=== PATIENT | female | born 1945 | race Caucasian/White ===

== ENCOUNTER 2020-10-05 12:02 | Outpatient (CLI) | payer MEDICARE, MEDICAID, SELFPAY ==
--- NOTE | 2020-10-05 12:19 | XR_ITS ---
WS: [id number] Exam: XR thoracic spine 2V [id number] Date/Time of Exam: 10/05/2020 12:19 PM Reason For Exam: THORACIC SPINE PAIN No acute fracture or dislocation. Mild spondylosis. Osteopenia. Paraspinal soft tissues are unremarka ble. No significant scoliosis. XR/XR thoracic spine 2V [id number] IMPRESSION: 1. Mild degenerative changes and osteopenia. 2. No fracture or malalignment.
== END 2020-10-05 12:03 | disposition home or self-care (01) ==
PROVIDERS: Visit Provider Chiropractor Orthopedic
DX: M54.6 Pain in thoracic spine (principal); M85.88 Other specified disorders of bone density and structure, other site
CPT/HCPCS: 72070

== ENCOUNTER → 2022-05-21 12:14 | Outpatient (BNVA) | payer MEDICARE, SELFPAY | PROVIDERS: PCP Family Medicine; Visit Provider Family Medicine | DX: M65.4 Radial styloid tenosynovitis [de Quervain] (principal); K21.9 Gastro-esophageal reflux disease without esophagitis; I10 Essential (primary) hypertension; M19.032 Primary osteoarthritis, left wrist; M19.031 Primary osteoarthritis, right wrist | CPT/HCPCS: 73100; 80053; 80061; 82607; 85025 ==

== ENCOUNTER → 2022-05-23 11:28 | Outpatient (BNVA) | payer MEDICARE, MEDICAID, SELFPAY | PROVIDERS: PCP Family Medicine; Visit Provider Family Medicine | DX: I10 Essential (primary) hypertension (principal); K21.9 Gastro-esophageal reflux disease without esophagitis; M65.4 Radial styloid tenosynovitis [de Quervain] | CPT/HCPCS: 81003; 87077; 87086; 87184 ==

== ENCOUNTER 2022-06-16 07:54 | Oncology outpatient (recurring) (ONCR) | payer MEDICARE, MEDICAID, SELFPAY | END 2022-07-09 23:59 | disposition home or self-care (01) | PROVIDERS: PCP Family Medicine; Visit Provider Internal Medicine Hematology & Oncology | DX: C50.912 Malignant neoplasm of unspecified site of left female breast (principal); Z85.118 Personal history of other malignant neoplasm of bronchus and lung; Z79.811 Long term (current) use of aromatase inhibitors; Z90.2 Acquired absence of lung [part of] | CPT/HCPCS: 80053; 85025; 86300; 99204 ==

== ENCOUNTER 2022-06-18 13:26 | Outpatient (CLI) | payer MEDICARE, SELFPAY ==
--- NOTE | 2022-06-18 13:35 | MM_ITS ---
WS: [id number] BILATERAL 3D TOMOSYNTHESIS DIGITAL DIAGNOSTIC MAMMOGRAPHY WITH CAD CLINICAL INFORMATION: Follow up HISTORY: Prior LEFT lumpectomy COMPARISON: None. TECHNIQUE: Bilateral CC, MLO, and ML views. FINDINGS: Scattered fibroglandular densities bilaterally. Vascular calcifications. Postoperative changes lumpec katlyn LEFT breast with parenchymal scarring. A few incidental punctate calcifications. Biopsy clip LEF T breast. No suspicious focal mass, asymmetry, calcifications, or architectural distortion. No evidence of matheus gnancy. MM/[place] [id number] IMPRESSION: BI-RADS: 2-Benign FOLLOW UP: 1 Year Follow-up Recommend return to annual diagnostic mammography.
== END 2022-06-18 13:27 | disposition home or self-care (01) ==
LOC: RAD 13:27
PROVIDERS: PCP Family Medicine; Visit Provider Internal Medicine Hematology & Oncology
DX: Z85.3 Personal history of malignant neoplasm of breast (principal)
CPT/HCPCS: 77062; G0279

== ENCOUNTER 2022-07-10 07:23 | Outpatient (CLI) | payer MEDICARE, SELFPAY ==
--- NOTE | 2022-07-10 07:45 | US_ITS ---
WS: [id number] ULTRASOUND ABDOMEN LIMITED CLINICAL INFORMATION: galltones COMPARISON: None. FINDINGS: Liver Size: Normal. Craniocaudal length: 13.8 cm. Echogenicity: Normal. Surface nodularity: None. Mass (size and location): None. Bile ducts Intrahepatic ducts: Normal. Common bile duct diameter: 0.3 cm. Gallbladder Shadowing cholelithiasis Gallstones: Present Gallbladder sludge: None. Gallbladder wall thickening: None. Pericholecystic fluid: None. Sonographic Hernandez sign: Absent. Pancreas Normal as visualized. Right kidney: Normal. Hydronephrosis: None. Size: 8.6 cm x 3.3 cm x 4.2 cm. Abdominal aorta and IVC Visualized portions are normal. Ascites: None. US/US gall bladder [id number] IMPRESSION: 1. Normal liver. 2. Shadowing cholelithiasis. No gallbladder wall thickening or pericholecystic fluid. 3. Normal common bile duct measuring 2.8 mm. 4. No hydronephrosis in RIGHT kidney.
== END 2022-07-10 07:24 | disposition home or self-care (01) ==
LOC: RAD 07:31
PROVIDERS: PCP Family Medicine; Visit Provider Family Medicine
DX: K80.20 Calculus of gallbladder without cholecystitis without obstruction (principal)
CPT/HCPCS: 76705

== ENCOUNTER 2022-09-04 06:00 | Oncology outpatient (recurring) (ONCR) | payer MEDICARE, SELFPAY | END 2022-09-09 23:59 | disposition home or self-care (01) | LOC: ONCMED 09-18 16:29 | PROVIDERS: PCP Family Medicine; Visit Provider Internal Medicine Hematology & Oncology | DX: C50.912 Malignant neoplasm of unspecified site of left female breast (principal); E87.1 Hypo-osmolality and hyponatremia; Z79.811 Long term (current) use of aromatase inhibitors; R93.89 Abnormal findings on diagnostic imaging of other specified body structures; Z79.899 Other long term (current) drug therapy ==

== ENCOUNTER → 2022-10-07 08:56 | Outpatient (BNVA) | payer MEDICARE, SELFPAY | PROVIDERS: PCP Family Medicine; Visit Provider Surgery | DX: R19.03 Right lower quadrant abdominal swelling, mass and lump (principal); K80.20 Calculus of gallbladder without cholecystitis without obstruction; Z12.11 Encounter for screening for malignant neoplasm of colon | CPT/HCPCS: 99204 ==

== ENCOUNTER 2022-11-06 06:40 | Day surgery (SDC) | payer MEDICARE, SELFPAY ==
[2022-11-05 12:05] VITALS: BMI 38.3
[2022-11-06 07:03] VITALS: BP 152/103; PULSE 79; RESP 16; TEMP 36.2; O2SAT 99
--- NOTE | 2022-11-06 07:22 | ANES.PREANE2 ---
Pre-Anesthetic Assessment Height/Weight: Height 1.5 m Weight 86.183 kg Temp Pulse Resp BP Pulse Ox O2 Del Method 97.2 F L 79 16 152/103 99 11/06/22 07:03 11/06/22 07:03 11/06/22 07:03 11/06/22 07:03 11/06/22 07:03 11/06/22 07:03 Preop Diagnosis: Symptomatic cholelithiasis, abdominal mass Operation Date: 11/06/22 08:00 Proposed Procedures p diagnostic laparoscopy with cholecystectomy 75171 15284,R19.03,(Not Applicable) - Glen Farr DO Familial anesthetic complications: none Was Beta Kita taken within 24 hours: N/A Was Clonidine taken within 24 hours: N/A Last intake: Intake Last Liquid Date 11/05/22 Last Liquid Time 19:30 Last Solid Date 11/05/22 Last Solid Time 18:30 Social No alcohol and No tobacco Exam alert, oriented x 3, clear to auscultation bilaterally and regular rate & rhythm Airway Submandibular: within normal limits Cervical ROM: within normal limits Mallampati: Class I Dentition: false Pulmonary None reported january 2022 wedge resection right lower lobe due to lung cancer. Previous smoker quit at age 52 CV/HEM Hypertension METS < 4 Chronic Renal Insufficiency patient states one kidney is smaller she was told she has bad kidneys . Poor historian. Hepatic None reported GI Gastroesophageal Reflux Disease abdominal pain and mass Metabolic Hyperlipidemia and Morbid Obesity Musc/skel Osteoarthritis/DJD Neuropsych None reported Anesthetic Plan ASA status: 3 Anesthesia: General Medications/Allergies Home Medications Medication Instructions Recorded Confirmed Last Taken Type cholecalciferol (vitamin D3) 50 50 mcg PO DAILY 05/21/22 11/05/22 11/05/22 History mcg (2,000 unit) capsule amlodipine 10 mg tablet 10 mg PO DAILY #90 tabs 06/06/22 11/05/22 11/05/22 Rx atorvastatin 20 mg tablet 20 mg PO DAILY #90 tabs 06/06/22 11/05/22 11/05/22 Rx anastrozole 1 mg tablet 1 mg PO DAILY #90 tabs 06/16/22 11/05/22 11/05/22 Rx cyclobenzaprine 5 mg tablet 5 mg PO BID PRN muscle relaxer 06/16/22 11/05/22 Unknown History pantoprazole 40 mg tablet,delayed 40 mg PO DAILY #90 tabs 06/23/22 11/05/22 11/05/22 Rx release sertraline 50 mg tablet 50 mg PO DAILY #90 tabs 06/23/22 11/05/22 11/05/22 Rx sucralfate 100 mg/mL oral 5 ml PO QID #1,000 mL 08/28/22 11/05/22 11/05/22 Rx suspension lisinopril 40 mg tablet 40 mg PO DAILY #90 tabs 10/07/22 11/05/22 11/05/22 Rx tamsulosin 0.4 mg capsule 0.4 mg PO DAILY #90 caps 10/07/22 11/05/22 11/05/22 Rx docusate sodium 100 mg capsule 100 mg PO BID #14 caps 11/06/22 Unknown Rx (DOK) hydrocodone 5 mg-acetaminophen 325 1 tab PO Q6H PRN pain #20 tabs 11/06/22 Unknown Rx mg tablet Allergies Allergy/AdvReac Type Severity Reaction Status Date / Time No Known Allergies Allergy Verified 11/06/22 07:01 [facility] Anesthesia Medical History Gallstone GERD (gastroesophageal reflux disease) History of breast cancer History of lung cancer History of nonmelanoma skin cancer Hypercholesteremia Hypertension Osteoarthritis Tendonitis bilateral wrists Surgical History History of bilateral tubal ligation History of esophagogastroduodenoscopy (EGD) 10+ yrs History of lumpectomy of left breast History of lung surgery cancer removal Hx of colonoscopy 10+ Family History Denies family history of Diabetes CAD (coronary artery disease) Clotting disorder Dementia Hyperlipidemia Chronic kidney disease (CKD) Anesthesia complication Bleeding disorder Lung disease Cancer Hypertension Stroke Social History Smoking and tobacco status: former smoker (smoked x 20+ years) Smoking risk assessment/counseling performed?: No Alcohol intake: current Alcohol intake frequency: holidays/special occasions only Desire information about alcohol rehabilitation?: No Counseling given: No Desire information about substance/drug rehabilitation?: No Counseling given: No Adopted: No Caregiver/support person: No Lives independently: Yes Household members: children Marital status: service: No Current occupational status: retired and disabled Current occupational exposures/hazards: No Pets and animals: No Current gender identity: Female Special nitish needs: No Agree to transfusion: Yes Data Anesthesia Cardiac Studies: No Data to Display
[2022-11-06] MEDS: sodium chloride 0.9% 1,000 ML 30 ML IV (07:23)
--- NOTE | 2022-11-06 07:45 | ECG_ITS ---
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 Measurements Intervals Conesus Rate: 64 P: -24 HI: 159 QRS: -1 QRSD: 87 T: 29 QT: 381 QTc: 396 Interpretive Statements SINUS RHYTHM LOW QRS VOLTAGE IN PRECORDIAL LEADS [QRS DEFLECTION < 1.0 mV IN CHEST LEADS] PATTERN CONSISTENT WITH PULMONARY DISEASE No previous ECG available for comparison Electronically Signed On 11-06-2022 18:47:17 CDT by Ze Mcguire M.D. [id number]
--- NOTE | 2022-11-06 08:00 | W.PM.OPSUD ---
Surgery/Procedure H&P Update DATE OF PROCEDURE: November 06, 2022 DATE H&P PERFORMED: 10/07/22 H&P UPDATE INFORMATION: I have reviewed H&P completed within last 30 days, I have examined patient prior to procedure and No changes to prior documentation PREOP DIAGNOSIS: Symptomatic cholelithiasis, abdominal mass PLANNED PROCEDURE: Operation Date: 11/06/22 08:00 Proposed Procedures p diagnostic laparoscopy with cholecystectomy 01290 92200,R19.03,(Not Applicable) - Glen Farr DO
[2022-11-06] MEDS: ceFAZolin 2,000 MG in sodium chloride 0.9% (plus) 50 ML 100 MG IV (08:01)
[2022-11-06] MEDS: lidocaine-epi 2% 20 mL INJ INJECTION (08:22)
--- NOTE | 2022-11-06 09:05 | P.OP_ITS ---
Operative Report Date of procedure: November 06, 2022 Pre-op diagnosis: Preop Diagnosis Symptomatic cholelithiasis, abdominal mass Post-op diagnosis: same Procedure done: Diagnostic laparoscopy, laparoscopic cholecystectomy Implants: None Specimens removed/disposition: Gallbladder Surgeon: Dr. Glen Ohara DO Anesthesia: General Estimated blood loss (mL): 5 Complications: None apparent Brief History: This is a very pleasant 77-year-old female who was diagnosed with symptomatic cholelithiasis. She was also found to have a calcified mass near her cecum on outside imaging. Diagnostic laparoscopy and laparoscopic cholecystectomy were indicated. The risk and benefits were explained and documented. Procedure: Patient was wheeled into the operative room and placed on the OR table in a supine position. Abdomen was inspected prepped and draped in usual sterile fashion. Time-out was performed and all present were in agreement. A 15 blade scalp was used to make a 5 mm incision in the left upper quadrant and intra- abdominal insufflation was achieved using a Veress needle. A 5 mm trocar was placed into the left lower quadrant. The right lower quadrant was explored. The cecum was turned over. There was a right ovarian cyst noted and a calcified and aneurysmal aortic bifurcation. The right internal iliac artery was very large and calcified as well. No mass was found. After localizing the tissue incisions were made and a 5 millimeter trocar was placed into the umbilicus as well as 2 in the right upper quadrant. A 12 millimeter trocar was placed in the epigastrium. There was significant omental adhesions over the gallbladder which were removed with electrocautery. Gallbladder was grasped and elevated. The triangle of Calot was carefully dissected using blunt dissection and electrocautery until the triangle of Calot clearly identified. The cystic duct was clipped proximally and double clipped distally. The duct was then ligated pr oximally. The cystic artery was doubly clipped and ligated. The gallbladder was then removed from the liver bed using electrocautery. The gallbladder was removed from the abdomen using an Endo-Catch bag through the epigastric incision. The liver bed was inspected and no bleeding was seen. The abdomen was irrigated and suctioned. All ports removed. Skin was washed and dried. Incisions were closed with 3-0 and 4-O Vicryl in a subcuticular interrupted fashion. Skin glue was applied. Patient tolerated the procedure well.
[2022-11-06 09:30] VITALS: BP 119/53; PULSE 71; RESP 16; TEMP 36.3; O2SAT 99
[2022-11-06 09:35] VITALS: BP 122/50; PULSE 70; RESP 16; O2SAT 99
[2022-11-06 09:40] VITALS: BP 115/47; PULSE 70; RESP 16; O2SAT 94
[2022-11-06 09:45] VITALS: BP 120/53; PULSE 72; RESP 16; TEMP 36.6; O2SAT 94
[2022-11-06 10:00] VITALS: BP 130/61; PULSE 64; RESP 17; O2SAT 98
[2022-11-06] MEDS: HYDROcodone-acetaminophen 5-325 mg Tablet 1 TAB PO (10:14)
--- NOTE | 2022-11-06 15:59 | ANE.PACU2 ---
Inpatient post-anesthesia follow up: Airway intact: Yes Vital signs: Temperature 97.8 F Pulse Rate 64 Respiratory Rate 17 Blood Pressure 130/61 Pulse Oximetry 98 Oxygen Delivery Me thod Room Air Oxygen Flow Rate 3 Fraction of Inspir ed Oxygen Hydration adequate: Yes Nausea and vomiting: No Pain level: 3 Mental status: Baseline
== END 2022-11-06 10:45 | disposition home or self-care (01) ==
PROVIDERS: PCP Family Medicine; Visit Provider Surgery
PROC: 0FT44ZZ Resection of Gallbladder, Percutaneous Endoscopic Approach (ICD-10-PCS; CPT 47562; principal; 2022-11-06 08:00)
DX: K80.10 Calculus of gallbladder with chronic cholecystitis without obstruction (principal); R19.03 Right lower quadrant abdominal swelling, mass and lump; Z87.891 Personal history of nicotine dependence; Z90.2 Acquired absence of lung [part of]; Z85.118 Personal history of other malignant neoplasm of bronchus and lung; I12.9 Hypertensive chronic kidney disease with stage 1 through stage 4 chronic kidney disease, or unspecified chronic kidney disease; N18.9 Chronic kidney disease, unspecified; K21.9 Gastro-esophageal reflux disease without esophagitis; E78.5 Hyperlipidemia, unspecified; E66.01 Morbid (severe) obesity due to excess calories; Z68.38 Body mass index [BMI] 38.0-38.9, adult; M19.90 Unspecified osteoarthritis, unspecified site
CPT/HCPCS: 47562; 88304; 93005; J0690; J1100; J2370; J2405; J2704; J2710; J3010; J3490; J7030

== ENCOUNTER → 2022-11-18 10:22 | Outpatient (BNVA) | payer MEDICARE, SELFPAY | PROVIDERS: PCP Family Medicine; Visit Provider Surgery | DX: Z98.890 Other specified postprocedural states (principal); N83.201 Unspecified ovarian cyst, right side; Z90.49 Acquired absence of other specified parts of digestive tract; R19.03 Right lower quadrant abdominal swelling, mass and lump | CPT/HCPCS: 99024 ==

== ENCOUNTER 2022-12-03 05:44 | Day surgery (SDC) | payer MEDICARE, SELFPAY ==
[2022-12-01 08:56] VITALS: BMI 38.0
[2022-12-03] MEDS: sodium chloride 0.9% 1,000 ML 30 ML IV (06:12)
[2022-12-03 06:14] VITALS: BP 171/77; PULSE 70; RESP 18; TEMP 36.5; O2SAT 97
--- NOTE | 2022-12-03 06:51 | W.PM.OPSUD ---
Surgery/Procedure H&P Update DATE OF PROCEDURE: December 03, 2022 DATE H&P PERFORMED: 11/18/22 H&P UPDATE INFORMATION: I have reviewed H&P completed within last 30 days, I have examined patient prior to procedure and No changes to prior documentation PLANNED PROCEDURE: Operation Date: 12/03/22 07:00 Proposed Procedures p : [id number] Colon Z12.11(Not Applicable) - Glen Farr, DO
--- NOTE | 2022-12-03 06:56 | P.ANESASSM_ITS ---
Pre-Anesthetic Assessment Height/Weight: Height 1.52 m Weight 88.451 kg Temp Pulse Resp BP Pulse Ox O2 Del Method 97.7 F 70 18 171/77 97 Room Air 12/03/22 06:14 12/03/22 06:14 12/03/22 06:14 12/03/22 06:14 12/03/22 06:14 12/03/22 06:14 Preop Diagnosis: screening Operation Date: 12/03/22 07:00 Proposed Procedures p : [id number] Colon Z12.11(Not Applicable) - Glen Farr DO Familial anesthetic complications: none Was Beta Kita taken within 24 hours: N/A Was Clonidine taken within 24 hours: N/A Last intake: Intake Last Liquid Date 12/02/22 Last Liquid Time 19:30 Last Solid Date 12/01/22 Social No alcohol and No tobacco Exam alert and oriented x 3 Airway Submandibular: within normal limits Cervical ROM: within normal limits Mallampati: Class II Dentition: false (uppers) History/ROS No significant history except as noted Pulmonary None reported CV/HEM Hypertension reports one is smaller than the other, was told she has bad kidneys Hepatic None reported GI Gastroesophageal Reflux Disease Metabolic Morbid Ob[place] [facility] None reported Neuropsych None reported Anesthetic Plan ASA status: 2 Anesthesia: Anesthesia Evaluation and MAC Risk of > 500 ml blood loss (7ml/kg in children): No Medications/Allergies Home Medications Medication Instructions Recorded Confirmed Last Taken Type cholecalciferol (vitamin D3) 50 50 mcg PO DAILY 05/21/22 12/01/22 12/02/22 History mcg (2,000 unit) capsule amlodipine 10 mg tablet 10 mg PO DAILY #90 tabs 06/06/22 12/01/22 12/02/22 Rx anastrozole 1 mg tablet 1 mg PO DAILY #90 tabs 06/16/22 12/01/22 12/02/22 Rx pantoprazole 40 mg tablet,delayed 40 mg PO DAILY #90 tabs 06/23/22 12/01/22 12/02/22 Rx release sertraline 50 mg tablet 50 mg PO DAILY #90 tabs 06/23/22 12/01/22 12/02/22 Rx lisinopril 40 mg tablet 40 mg PO DAILY #90 tabs 10/07/22 12/01/22 12/02/22 Rx tamsulosin 0.4 mg capsule 0.4 mg PO DAILY #90 caps 10/07/22 12/01/22 12/02/22 Rx atorvastatin 20 mg tablet 20 mg PO DAILY #90 tabs 11/27/22 12/01/22 12/02/22 Rx Allergies Allergy/AdvReac Type Severity Reaction Status Date / Time No Known Allergies Allergy Verified 12/03/22 06:13 Current Medications Generic Name Dose Route Start Last Admin Trade Name Freq PRN Reason Stop Dose Admin Sodium Chloride 1,000 mls @ 30 mls/hr 12/03/22 06:00 12/03/22 06:12 Sodium Chloride 0.9% IV 12/04/22 05:59 30 mls/hr .Q24H KAYLEEN Administration PFSH Anesthesia Medical History (Updated 11/25/22 @ 09:46 by Jose Guadalupe Earl) Gallstone GERD (gastroesophageal reflux disease) History of breast cancer History of lung cancer History of nonmelanoma skin cancer Hypercholesteremia Hypertension Osteoarthritis Tendonitis bilateral wrists Surgical History History of bilateral tubal ligation History of esophagogastroduodenoscopy (EGD) 10+ yrs History of laparoscopic cholecystectomy History of lumpectomy of left breast History of lung surgery cancer removal Hx of colonoscopy 10+ Family History (Updated 11/25/22 @ 09:47 by Jose Guadalupe Earl) Family/Other Breast cancer Aunt/Maternal Grandmother Breast cancer Maternal Father Heart disease Denies family history of Colon cancer Ovarian cancer Diabetes Hypertension Uterine cancer Thyroid disease Stroke Social History Substance/Drug Use: never Do you think of yourself as: Straight/Heterosexual Data Anesthesia Cardiac Studies: No Data to Display
[2022-12-03 07:34] VITALS: BP 118/50; PULSE 72; RESP 16; TEMP 36.3; O2SAT 100
--- NOTE | 2022-12-03 07:34 | ANE.PACU2 ---
Inpatient post-anesthesia follow up: Airway intact: Yes Vital signs: Temperature 97.7 F Pulse Rate 70 Respiratory Rate 18 Blood Pressure 171/77 Pulse Oximetry 97 Oxygen Delivery Me thod Room Air Oxygen Flow Rate Fraction of Inspir ed Oxygen Hydration adequate: Yes Nausea and vomiting: No Pain level: 1 Mental status: Baseline
[2022-12-03 07:48] VITALS: BP 127/51; PULSE 81; RESP 18; O2SAT 98
== END 2022-12-03 08:21 | disposition home or self-care (01) ==
PROVIDERS: PCP Family Medicine; Visit Provider Surgery
PROC: 0DJD8ZZ Inspection of Lower Intestinal Tract, Via Natural or Artificial Opening Endoscopic (ICD-10-PCS; CPT 45378; principal; 2022-12-03 07:00)
DX: Z12.11 Encounter for screening for malignant neoplasm of colon (principal); D12.2 Benign neoplasm of ascending colon; K63.89 Other specified diseases of intestine; K21.9 Gastro-esophageal reflux disease without esophagitis; I10 Essential (primary) hypertension; E78.00 Pure hypercholesterolemia, unspecified; E66.01 Morbid (severe) obesity due to excess calories; Z68.38 Body mass index [BMI] 38.0-38.9, adult; Z79.899 Other long term (current) drug therapy
CPT/HCPCS: 45380; 45381; 88305; J2704; J3490; J7030

== ENCOUNTER 2022-12-05 08:57 | Outpatient (CLI) | payer MEDICARE, SELFPAY ==
[2022-12-05 09:41] LABS: Blood Urea Nitrogen 12 mg/dL (8-23)
[2022-12-05] MEDS: iohexol 350 mg/mL 500 mL Btl (per mL) IV (09:45)
--- NOTE | 2022-12-05 09:50 | XR_ITS ---
WS: [id number] Exam: XR chest 2V* [id number] Date/Time of Exam: 12/05/2022 9:50 AM Reason For Exam: colon mass No priors. The lungs are fully expanded and clear. Normal cardiomediastinal silhouette. No pleural effusions. Prater rgical clips along the left axilla. Mild scoliosis of the lower T-spine. XR/XR chest 2V* [id number] IMPRESSION: 1. No acute cardiopulmonary finding.
--- NOTE | 2022-12-05 10:30 | CT_ITS ---
WS: [id number] CT ABDOMEN PELVIS TECHNIQUE: Contrast-enhanced CT of the abdomen and pelvis with coronal and sagittal reformatted image s. CLINICAL INFORMATION: colon mass COMPARISON: None. DLP: 608.[address] scans at [facility] use at least one of these dose optimization techniques: automated e xposure control; mA and/or kV adjustment per patient size (includes targeted exams where dose is matc hed to clinical indication); or iterative reconstruction. FINDINGS: Reported RIGHT colon mass on recent colonoscopy. Normal sigmoid colon. Normal descending colon and transverse colon. Tortuous RIGHT colon and hepatic flexure. Normal appendix in the RIGHT lower quadrant. Intraluminal mass seen on the recent colonoscop y not well visualized on this examination. Normal visualized small bowel. Diffuse gastric wall thicke kelly can be seen with gastritis and proximal duodenitis. Subsegmental atelectasis in the lung bases. Grade 1 anterolisthesis L4 on L5. Diffuse fatty infiltration liver. Enlarged RIGHT hepatic lobe. Norm al portal vein and splenic vein. Cholecystectomy clips. Adrenal glands are normal. Mild fatty atrophy of the pancreas. Normal spleen. Splenic artery calcification. Densely calcified a bdominal aorta. Moderate stenosis at the celiac origin with dense calcification. SMA is patent. Dense vascular calcification of the renal artery origins. No abdominal or pelvic lymphadenopathy. No inguinal lymphadenopathy. CT/CT abdomen pelvis w con* [id number] IMPRESSION: 1. No evidence of metastatic disease in the abdomen or pelvis. 2. Mass seen on recent colonoscopy not well visualized on this examination. 3. No evidence of small or large bowel obstruction. 4. Diffuse fatty infiltration liver. 5. Cholecystectomy clips. 6. Diffuse gastric wall thickening with mucosal enhancement extending to the p roximal duodenum likely due to gastritis and duodenitis. 7. Dense vascular calcification. 8. No other suspicious findings.
== END 2022-12-05 08:58 | disposition home or self-care (01) ==
LOC: RAD 09:02
PROVIDERS: Radiology Diagnostic Radiology; PCP Family Medicine; Visit Provider Surgery
DX: K63.89 Other specified diseases of intestine (principal); K76.0 Fatty (change of) liver, not elsewhere classified
CPT/HCPCS: 71046; 74177; 82565; 84520; Q9967

== ENCOUNTER 2022-12-08 10:22 | Inpatient (IN) | payer MEDICARE, SELFPAY ==
[2022-12-05 10:35] VITALS: BMI 37.0
[2022-12-08] VITALS (20 sets, daily range): BP systolic 87–169; BP diastolic 46–88; PULSE 63–105; RESP 16–18; TEMP 35.8–36.6; O2SAT 91–100; BMI 37.0
[2022-12-08] MEDS: sodium chloride 0.9% 1,000 ML 30 ML IV (06:22)
[2022-12-08 06:39] LABS: Basophils % 0.8 %; Eosinophils # 0.2 10^3/uL (0.0-0.8); Eosinophils % 3.4 %; Hematocrit 33.8 % (37.0-47.0); Hemoglobin 10.8 g/dL (11.5-15.3); Lymphocytes # 1.3 10^3/uL (0.8-4.8); Lymphocytes % 24.9 %; Mean Corpuscular Hemoglobin 28.7 pg (28.0-34.0); Mean Corpuscular Volume 89.9 fl (81-99); Mean Platelet Volume 10.5 fL (7.4-10.4); Monocytes # 0.6 10^3/uL (0.2-0.9); Monocytes % 10.9 %; Neutrophils # 3.02 10^3/uL (1.8-7.7); Neutrophils % 59.6 %; Nucleated Red Blood Cells % 0 %; Platelet Count 233 10^3/cmm (130-400); Red Blood Count 3.76 10^6/uL (4.1-5.3); White Blood Count 5.1 10^3/uL (4.0-10.0)
--- NOTE | 2022-12-08 06:53 | ANES.PREANE2 ---
Pre-Anesthetic Assessment Height/Weight: Height 1.52 m Weight 86.183 kg Temp Pulse Resp BP Pulse Ox O2 Del Method 97.9 F 105 H 17 169/88 95 Room Air 12/08/22 06:09 12/08/22 06:09 12/08/22 06:09 12/08/22 06:09 12/08/22 06:09 12/08/22 06:13 Preop Diagnosis: Ascending colon mass Operation Date: 12/08/22 07:00 Proposed Procedures p Laparoscopic Right Hemicolectomy(Right) - Glen Farr DO Familial anesthetic complications: None Was Beta Kita taken within 24 hours: N/A Was Clonidine taken within 24 hours: N/A Last intake: Intake Last Liquid Date 12/07/22 Last Liquid Time 19:00 Last Solid Date 12/06/22 Last Solid Time 09:00 Social No alcohol and No tobacco former smoker Exam alert, oriented x 3, clear to auscultation bilaterally and regular rate & rhythm Airway Mallampati: Class I Dentition: false Pulmonary hx wedge resection 2021 CV/HEM Hypertension Chronic Renal Insufficiency GI Gastroesophageal Reflux Disease Metabolic Morbid Obesity Anesthetic Plan ASA status: 3 Anesthesia: General Risk of > 500 ml blood loss (7ml/kg in children): No Medications/Allergies Home Medications Medication Instructions Recorded Confirmed Last Taken Type cholecalciferol (vitamin D3) 50 50 mcg PO DAILY 05/21/22 12/08/22 12/07/22 History mcg (2,000 unit) capsule amlodipine 10 mg tablet 10 mg PO DAILY #90 tabs 06/06/22 12/05/22 12/07/22 Rx anastrozole 1 mg tablet 1 mg PO DAILY #90 tabs 06/16/22 12/05/22 12/07/22 Rx pantoprazole 40 mg tablet,delayed 40 mg PO DAILY #90 tabs 06/23/22 12/05/22 12/07/22 Rx release sertraline 50 mg tablet 50 mg PO DAILY #90 tabs 06/23/22 12/05/22 12/07/22 Rx lisinopril 40 mg tablet 40 mg PO DAILY #90 tabs 10/07/22 12/05/22 12/07/22 Rx tamsulosin 0.4 mg capsule 0.4 mg PO DAILY #90 caps 02/28/23 04/28/23 04/30/23 Rx atorvastatin 20 mg tablet 20 mg PO DAILY #90 tabs 11/27/22 12/05/22 12/07/22 Rx Allergies Allergy/AdvReac Type Severity Reaction Status Date / Time No Known Allergies Allergy Verified 12/08/22 06:03 Current Medications Generic Name Dose Route Start Last Admin Trade Name Andrea PRN Reason Stop Dose Admin Sodium Chloride 1,000 mls @ 30 mls/hr 12/08/22 06:00 12/08/22 06:22 Sodium Chloride 0.9% IV 12/09/22 05:59 30 mls/hr .Q24H KAYLEEN Administration PFSH Anesthesia Medical History (Updated 11/25/22 @ 09:46 by Jose Guadalupe Earl) Gallstone GERD (gastroesophageal reflux disease) History of breast cancer History of lung cancer History of nonmelanoma skin cancer Hypercholesteremia Hypertension Osteoarthritis Tendonitis bilateral wrists Surgical History History of bilateral tubal ligation History of esophagogastroduodenoscopy (EGD) 10+ yrs History of laparoscopic cholecystectomy History of lumpectomy of left breast History of lung surgery cancer removal Hx of colonoscopy 10+ Family History (Updated 11/25/22 @ 09:47 by Jose Guadalupe Earl) Family/Other Breast cancer Aunt/Maternal Grandmother Breast cancer Maternal Father Heart disease Denies family history of Colon cancer Ovarian cancer Diabetes Hypertension Uterine cancer Thyroid disease Stroke Social History Substance/Drug Use: never Do you think of yourself as: Straight/Heterosexual Data Anesthesia 12/08/22 06:26 12/08/22 06:26 Short CBC 12/08/22 Range/Units 06:26 WBC 5.1 (4.0-10.0) 10^3/uL Hgb 10.8 L (11.5-15.3) g/dL Hct 33.8 L (37.0-47.0) % MCV 89.9 (81-99) fl Plt Count 233 (130-400) 10^3/cmm Neut % (Auto) 59.6 % Neut # (Auto) 3.02 (1.8-7.7) 10^3/uL Cardiac Studies: No Data to Display
--- NOTE | 2022-12-08 06:57 | P.HP_ITS ---
Providers/Chief Complaint Primary Care Provider: Garrett Shaffer MD Chief Complaint: K63.89 History of Present Illness Danette Rodas is a 77 year old female who was found to have an ascending colon mass on colonoscopy and presents today for laparoscopic right hemicolectomy. Biopsies of the mass showed tubular adenoma with areas of focal high-grade dysplasia. I suspect there may be cancer underlying. This mass is not endoscopically resectable. Medications/Allergies Home Medications Medication Instructions Recorded Confirmed Last Taken Type cholecalciferol (vitamin D3) 50 50 mcg PO DAILY 05/21/22 12/08/22 12/07/22 History mcg (2,000 unit) capsule amlodipine 10 mg tablet 10 mg PO DAILY #90 tabs 06/06/22 12/05/22 12/07/22 Rx anastrozole 1 mg tablet 1 mg PO DAILY #90 tabs 06/16/22 12/05/22 12/07/22 Rx pantoprazole 40 mg tablet,delayed 40 mg PO DAILY #90 tabs 06/23/22 12/05/22 12/07/22 Rx release sertraline 50 mg tablet 50 mg PO DAILY #90 tabs 06/23/22 12/05/22 12/07/22 Rx lisinopril 40 mg tablet 40 mg PO DAILY #90 tabs 10/07/22 12/05/22 12/07/22 Rx tamsulosin 0.4 mg capsule 0.4 mg PO DAILY #90 caps 10/07/22 12/05/22 12/07/22 Rx atorvastatin 20 mg tablet 20 mg PO DAILY #90 tabs 11/27/22 12/05/22 12/07/22 Rx Allergies Allergy/AdvReac Type Severity Reaction Status Date / Time No Known Allergies Allergy Verified 12/08/22 06:03 PFSH Acute 2 PFSH: Medical History (Updated 11/25/22 @ 09:46 by Jose Guadalupe Earl) Gallstone GERD (gastroesophageal reflux disease) History of breast cancer History of lung cancer History of nonmelanoma skin cancer Hypercholesteremia Hypertension Osteoarthritis Tendonitis bilateral wrists Surgical History History of bilateral tubal ligation History of esophagogastroduodenoscopy (EGD) 10+ yrs History of laparoscopic cholecystectomy History of lumpectomy of left breast History of lung surgery cancer removal Hx of colonoscopy 10+ Family History (Updated 11/25/22 @ 09:47 by Jose Guadalupe Earl) Family/Other Breast cancer Aunt/Maternal Grandmother Breast cancer Maternal Father Heart disease Denies family history of Colon cancer Ovarian cancer Diabetes Hypertension Uterine cancer Thyroid disease Stroke Social History Substance/Drug Use: never Do you think of yourself as: Straight/Heterosexual Vitals/I&O/Wt Last Vital Signs Temp 97.9 F 12/08/22 06:09 Pulse 105 H 12/08/22 06:09 Resp 17 12/08/22 06:09 BP 169/88 12/08/22 06:09 Pulse Ox 95 12/08/22 06:09 O2 Del Method Room Air 12/08/22 06:13 Data 12/08/22 06:26 12/08/22 06:26 A&P Assessment and plan (1) Mass of colon: Plan Laparoscopic right hemicolectomy The risks and benefits of the procedure, including but not limited to, bleeding, infection, scar, numbness, pain, anastomotic leak, conversion to an open procedure, damage to surrounding structures, or explained the patient. She is understanding the risks and wishes to proceed. Attestations Medical Necessity Statement*: Will be admitted following right hemicolectomy Coding Level of Care Code Acute Code for Chg Fwd Diagnoses Mass of colon K63.89
[2022-12-08] MEDS: heparin 5,000 unit/mL INJ 1 mL 5000 UNIT SUBCUT ×2 (07:08→20:22)
[2022-12-08 07:12] LABS: Carcinoembryonic Antigen 6.8 ng/mL (0.0-4.7)
[2022-12-08] MEDS: cefUROXime 1,500 MG in sodium chloride 0.9% (plus) 50 ML 100 MG IV (07:14)
[2022-12-08 07:18] LABS: Alanine Aminotransferase 12 U/L (0-33); Albumin Level 4.5 g/dL (3.5-5.2); Alkaline Phosphatase 69 U/L (35-105); Anion Gap 21.9 (5-19); Aspartate Amino Transferase 20 U/L (0-32); Blood Urea Nitrogen 8 mg/dL (8-23); Calcium 9.3 mg/dL (8.5-10.5); Carbon Dioxide 18 mmol/L (22-29); Chloride 93 mmol/L (98-107); Globulin 3.1 g/dL (1.3-4.6); Glucose 95 mg/dL (65-115); Osmolality Calculated 266 mOsm/kg (285-295); Potassium 3.9 mmol/L (3.5-5.1); Sodium 129 mmol/L (136-145); Total Bilirubin 0.5 mg/dL (0.15-1.2); Total Protein 7.6 g/dL (6.6-8.7)
[2022-12-08] MEDS: lidocaine-epi 2% 20 mL INJ INJECTION (07:45)
--- NOTE | 2022-12-08 09:57 | P.OP_ITS ---
Operative Report Date of procedure: December 08, 2022 Pre-op diagnosis: Preop Diagnosis Ascending colon mass Post-op diagnosis: other (hepatic flexure colon mass) Procedure done: Laparoscopic converted to open right hemicolectomy Implants: Surgicel Specimens removed/disposition: Right colon and terminal ileum Surgeon: Dr. Glen Farr DO Anesthesia: General Estimated blood loss (mL): 150 Complications: None apparent Brief History: This is a very pleasant 77-year-old female who was found to have an ascending colon mass on colonoscopy. 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 The mass was not resectable endoscopically. Right hemicolectomy was indicated. The risk and benefits were explained and documented. Procedure: Patient was wheeled in operative room and placed on the OR table in supine position. The abdomen was inspected prepped and draped in usual sterile fashion. A timeout was performed. All present were in agreement. General endotracheal ovation was achieved by the department anesthesia. A stab incision was made after localization over Cruz's point and a Veress needle was used to bring intra-abdominal insufflation to 15 mmHg. A 10 mm trocar was then placed in the umbilicus and two 5 mm trocars were placed under direct visualization into the left hemiabdomen. There were dense adhesions of omentum to the anterior abdominal wall and gallbladder fossa. She had just had laparoscopic cholecystectomy 31 days ago. The right white line of Toldt was taken down bluntly and with Enseal. Adhesions to the gallbladder fossa were taken down bluntly and with Enseal. Due to the amount of adhesions and some bleeding from the liver bed at the gallbladder fossa, the decision was made to convert to an open procedure. A midline incision was elongated cephalad with a 10 blade scalpel. Electrocautery was used to transect the fascia. Minor bleeding at the gallbladder fossa was controlled with electrocautery. The tattooing was identified near the hepatic flexure. The hepatic flexure was taken down bluntly and with the Enseal. The omentum was then transected at the transverse colon. A [id number] functional end-to-end anastomosis was made between the ileum and the mid transverse colon. Two 100 mm PEDRO blue loads were used to do this. The mesentery was then transected with Enseal. The right colon with terminal ileum was passed off as specimen. The abdomen was extensively irrigated and suctioned. There is approximately 150 cc of total blood loss. A piece of Prater rgicel was placed into the gallbladder fossa as there was some blood oozing from this location. Hemostasis was noted. The midline incision was closed at the fascia with #1 PDS x2 in a running fashion. Skin was closed using josie. We then converted back to laparoscopy to confirm hemostasis. Hemostasis was confirmed. Anastomosis looked healthy. Ports were removed and skin was closed with josie. Patient tolerated procedure well.
[2022-12-08] MEDS: pantoprazole 40 mg SDV IVP (11:17)
[2022-12-08] MEDS: sodium chloride 0.9% 1,000 ML 125 ML IV ×2 (11:18→17:58)
[2022-12-08] MEDS: HYDROmorphone 1 mg/mL INJ 1 mL IVP ×3 (11:18→20:50)
--- NOTE | 2022-12-08 11:28 | XR_ITS ---
WS: [id number] XR abdomen 1V* [id number] REASON FOR EXAM: NGT Placement FINDINGS: Postoperative abdomen with staple line to the right of midline A nasogastric tube is been placed. The tip is in a position consistent with the junction of the fundu s and body of the stomach. Mildly dilated central bowel loops. No definite free air or retroperitoneal air. XR/XR abdomen 1V* [id number] IMPRESSION: Nasogastric tube in proper position.
--- NOTE | 2022-12-08 13:07 | ANE.PACU2 ---
Inpatient post-anesthesia follow up: Airway intact: Yes Vital signs: Temperature 97 F Pulse Rate 68 Respiratory Rate 18 Blood Pressure 118/47 Pulse Oximetry 93 Oxygen Delivery Me thod Room Air Oxygen Flow Rate 6 Fraction of Inspir ed Oxygen Hydration adequate: Yes Nausea and vomiting: No Pain level: 1 Mental status: Baseline
[2022-12-09] VITALS (10 sets, daily range): BP systolic 102–169; BP diastolic 65–81; PULSE 69–103; RESP 16–20; TEMP 36.4–37.2; O2SAT 91–98
[2022-12-09] MEDS: HYDROmorphone 1 mg/mL INJ 1 mL IVP ×4 (00:40→18:25)
[2022-12-09] MEDS: sodium chloride 0.9% 1,000 ML 100 ML IV (00:41)
[2022-12-09 06:30] LABS: Basophils % 0.1 %; Hematocrit 22.2 % (37.0-47.0); Hemoglobin 7.3 g/dL (11.5-15.3); Lymphocytes # 0.4 10^3/uL (0.8-4.8); Lymphocytes % 4.3 %; Mean Corpuscular HGB Conc 32.9 g/dL (30.0-36.0); Mean Corpuscular Hemoglobin 30.2 pg (28.0-34.0); Mean Corpuscular Volume 91.7 fl (81-99); Mean Platelet Volume 9.5 fL (7.4-10.4); Monocytes # 1.1 10^3/uL (0.2-0.9); Monocytes % 10.3 %; Neutrophils # 8.76 10^3/uL (1.8-7.7); Neutrophils % 84.8 %; Nucleated Red Blood Cells % 0 %; Platelet Count 193 10^3/cmm (130-400); Red Blood Count 2.42 10^6/uL (4.1-5.3); Red Cell Distribution Width 14.3 % (12.1-15.1); White Blood Count 10.3 10^3/uL (4.0-10.0)
[2022-12-09 06:57] LABS: Anion Gap 17.4 (5-19); Blood Urea Nitrogen 13 mg/dL (8-23); Calcium 8.2 mg/dL (8.5-10.5); Carbon Dioxide 17 mmol/L (22-29); Chloride 105 mmol/L (98-107); Glucose 123 mg/dL (65-115); Osmolality Calculated 281 mOsm/kg (285-295); Potassium 4.4 mmol/L (3.5-5.1); Sodium 135 mmol/L (136-145)
[2022-12-09 07:01] LABS: Magnesium 1.4 mg/dL (1.7-2.3); Phosphorus 4.1 mg/dL (2.5-4.5)
[2022-12-09] MEDS: pantoprazole 40 mg SDV IVP (08:06)
--- NOTE | 2022-12-09 09:43 | PC.CHAP ---
Pastoral Care Encounter/Spiritual Assessment Type of Contact [] Declined secy visit [] Patient/Family/Request visit [] Outpatient visit [] Follow-up visit [] Physician referral [] Code/Alert [x] Routine visit [] Staff referral [] Actively dying [] Patient sleeping [] Family support [] [] Out of room [] Palliative care [] [] Receiving care in room [] Pre-surgical visit [] Trauma [] Long length of stay [] ICU visit [] Other: Relational/Emotional Strength [x] Patient feels connected with others/family/visitors/staff [] Distress [] Loneliness/isolation [] Abandonment Spirituality of Patient [x] Person of Kira [] Attends Zoroastrian of their Kira [x] Believes in Prayer [] Reads Bible or Roman Catholic materials [] There are Spiritual issues to be addressed Child Care Nurse Interventions [x] Prayer [] Active listening [] Non-anxious presence [x] Spiritual/emotional support [] Crisis/trauma care [] Spiritual counseling [] Bereavement support [] Provided bereavement packet [] Provided Bible/devotional materials [] Provided toy/stuffed animal, coloring book to patient or family member [] Provided Communion [] Anointing/[place] [] Salvation [x] Completed spiritual assessment [] Other: Impact on Illness or Injury [] Angry [] Fearful [] Anxious [] Often cries [] Exhaustion [] Unable to work [] Unable to attend roman catholic [] Unable to walk/stand [] Unable to read [] Unable to drive [] Unable to eat/drink [] Unable to sleep [] Unable to be with family [] Patient intubated [] Other: Summary Time spent with patient 5 min
[2022-12-09] MEDS: sodium chloride 0.9% 1,000 ML 125 ML IV ×2 (11:00→19:38)
[2022-12-09 11:14] LABS: Glucose Point of Care 128 mg/dL (70-110)
[2022-12-09 12:20] LABS: Hematocrit 23.5 % (37.0-47.0); Hemoglobin 7.5 g/dL (11.5-15.3)
[2022-12-09 16:58] LABS: Glucose Point of Care 132 mg/dL (70-110)
[2022-12-09] MEDS: phenol oral Spray 177 mL 3 SPRAY MUCOUS MEM (17:38)
--- NOTE | 2022-12-09 17:41 | PM.PN ---
Subjective Subjective: Patient seen and examined. She is having pain from the NG tube Vitals/I&O/Wt Last Vital Signs Temp 98.4 F 12/09/22 16:00 Pulse 103 H 12/09/22 16:00 Resp 18 12/09/22 16:00 BP 169/81 12/09/22 16:00 Pulse Ox 98 12/09/22 16:00 O2 Del Method Nasal Cannula 12/09/22 12:00 O2 Flow Rate 2 12/08/22 20:00 12/09/22 12/09/22 12/09/22 06:59 14:59 22:59 Intake Total 1000 / 5083.333 685 / 685 Output Total 300 / 850 Balance 700 / 4233.333 685 / 685 Weight last 48 hrs Weight 190 lb Physical Exam Narrative: Abdomen: Soft, nondistended, appropriately tender, no guarding rebound or masses Dressings clean dry and intact Urinary Catheter Management: Caldwell: Cath Placed During This Visit: yes Reason for Continuing Indwelling Catheter: Required Immobilization for Trauma or Surgery or Anesthesia Urinary Catheter Date of Insertion: 12/08/22 Urinary Catheter Time of Insertion: 07:40 Data 12/12/22 09:23 12/12/22 09:23 A&P Assessment and plan (1) Colonic mass: Plan Postoperative day #1 status post laparoscopic converted open right hemicolectomy IV fluids N.p.o. Await return of bowel function Attestations Medical Necessity Statement*: Patient requires multiple nights in the hospital for return of bowel function after right hemicolectomy for colon mass Coding Level of Care Code Acute Code for Chg Fwd Diagnoses Colonic mass K63.89
--- NOTE | 2022-12-09 18:40 | PC.NURSE ---
PATIENT HAS DONE WELL TODAY. PATIENT SAT UP IN THE CHAIR TWICE TODAY. ATTEMPTED TO WALK, BUT TOO WEAK AT THIS TIME. 200ML OUT NG TUBE. PAIN WELL CONTROLLED. SURGICAL DRESSING C/D/I.
[2022-12-09 20:11] LABS: Glucose Point of Care 131 mg/dL (70-110)
[2022-12-09] MEDS: heparin 5,000 unit/mL INJ 1 mL 5000 UNIT SUBCUT (20:17)
[2022-12-10] VITALS (14 sets, daily range): BP systolic 121–173; BP diastolic 65–84; PULSE 72–109; RESP 14–19; TEMP 36.4–37.1; O2SAT 2–95
[2022-12-10] MEDS: HYDROmorphone 1 mg/mL INJ 1 mL IVP ×3 (00:36→17:38)
[2022-12-10] MEDS: sodium chloride 0.9% 1,000 ML 125 ML IV ×2 (03:16→11:00)
[2022-12-10 06:11] LABS: Glucose Point of Care 89 mg/dL (70-110)
[2022-12-10] MEDS: pantoprazole 40 mg SDV IVP (08:55)
[2022-12-10] MEDS: heparin 5,000 unit/mL INJ 1 mL 5000 UNIT SUBCUT ×2 (08:55→20:54)
[2022-12-10 09:34] LABS: Basophils % 0.3 %; Eosinophils % 0.1 %; Hematocrit 21.1 % (37.0-47.0); Hemoglobin 6.7 g/dL (11.5-15.3); Lymphocytes # 0.9 10^3/uL (0.8-4.8); Lymphocytes % 9.6 %; Mean Corpuscular HGB Conc 31.8 g/dL (30.0-36.0); Mean Corpuscular Hemoglobin 29.5 pg (28.0-34.0); Monocytes # 0.8 10^3/uL (0.2-0.9); Neutrophils # 7.14 10^3/uL (1.8-7.7); Neutrophils % 80.1 %; Nucleated Red Blood Cells % 0 %; Platelet Count 205 10^3/cmm (130-400); Red Blood Count 2.27 10^6/uL (4.1-5.3); Red Cell Distribution Width 15.2 % (12.1-15.1); White Blood Count 8.9 10^3/uL (4.0-10.0)
[2022-12-10 10:25] LABS: Anion Gap 14.8 (5-19); Blood Urea Nitrogen 10 mg/dL (8-23); Calcium 8.5 mg/dL (8.5-10.5); Carbon Dioxide 19 mmol/L (22-29); Chloride 106 mmol/L (98-107); Glucose 105 mg/dL (65-115); Magnesium 1.5 mg/dL (1.7-2.3); Osmolality Calculated 281 mOsm/kg (285-295); Phosphorus 1.9 mg/dL (2.5-4.5); Potassium 3.8 mmol/L (3.5-5.1); Sodium 136 mmol/L (136-145)
--- NOTE | 2022-12-10 11:21 | PM.PN ---
Subjective Subjective: Patient seen and examined. No new complaints. Vitals/I&O/Wt Last Vital Signs Temp 98.9 F 12/12/22 08:00 Pulse 86 12/12/22 08:12 Resp 16 12/12/22 08:30 BP 182/76 12/12/22 08:00 Pulse Ox 97 12/12/22 08:30 O2 Del Method Room Air 12/12/22 08:12 O2 Flow Rate 1.5 12/11/22 21:00 12/11/22 12/12/22 12/12/22 22:59 06:59 14:59 Intake Total 1000 / 2000 1000 / 1000 Output Total 1600 / 1600 1000 / 2600 Balance -1600 / -600 0 / -600 1000 / 1000 Physical Exam Narrative: Abdomen: Soft, nondistended, appropriately tender, no guarding rebound or masses Dressings clean dry and intact Urinary Catheter Management: Caldwell: Cath Placed During This Visit: yes, but has since been removed by the nurse Reason for Continuing Indwelling Catheter: Acute Urinary Retention or Obstruction Urinary Catheter Date of Insertion: 12/10/22 Urinary Catheter Time of Insertion: 17:32 Date Urinary Catheter Removed: 12/10/22 Time Urinary Catheter Discontinued: 10:15 Data 12/12/22 09:23 12/12/22 09:23 A&P Assessment and plan (1) Colonic mass: Plan Postoperative day #2 status post laparoscopic converted open right hemicolectomy IV fluids N.p.o. Await return of bowel function Attestations Medical Necessity Statement*: Patient requires multiple nights in the hospital for return of bowel function after right hemicolectomy for colon mass Coding Level of Care Code Acute Code for Chg Fwd Diagnoses Colonic mass K63.89
[2022-12-10 11:30] LABS: Glucose Point of Care 99 mg/dL (70-110)
[2022-12-10 16:55] LABS: Glucose Point of Care 124 mg/dL (70-110)
--- NOTE | 2022-12-10 18:33 | PC.NURSE ---
PATIENT HAS AMBULATED TWICE TODAY AND SAT UP IN THE CHAIR. SHE HAS HYPOACTIVE BOWEL SOUNDS, NOT PASSING FLATUS AT THIS TIME. THIS NURSE REMOVED FOSTER CATHETER THIS AM. PATIENT WAS UNABLE TO VOID, BLADDER SCAN SHOWED GREATER THAN 600ML. DR GODRON NOTIFIED. ORDER TO PLACE FOSTER CATHETER WAS GIVEN. THIS NURSE INSERTED CATHETER AND RECEIVED A TOTAL OF 800ML OF CLEAR YELLOW URINE. PATIENTS PAIN NOW IMPROVED. SHE RECEIVED 1 UNIT OF BLOOD AND TOLERATED WELL. CURRENTLY RESTING IN BED.
[2022-12-10] MEDS: magnesium sulfate premix 4 GM/100 ML PREMIX IV (18:41)
[2022-12-10 19:04] LABS: Hematocrit 27.4 % (37.0-47.0); Hemoglobin 8.7 g/dL (11.5-15.3)
[2022-12-10] MEDS: potassium chloride premix 100 ML 50 MEQ IV (22:00)
[2022-12-11] VITALS (10 sets, daily range): BP systolic 146–166; BP diastolic 72–78; PULSE 79–94; RESP 15–17; TEMP 36.8–37.3; O2SAT 90–98
[2022-12-11] MEDS: HYDROmorphone 1 mg/mL INJ 1 mL IVP ×3 (00:46→20:37)
[2022-12-11] MEDS: sodium chloride 0.9% 1,000 ML 125 ML IV ×2 (05:21→15:43)
[2022-12-11] MEDS: heparin 5,000 unit/mL INJ 1 mL 5000 UNIT SUBCUT ×2 (08:26→21:19)
--- NOTE | 2022-12-11 11:24 | PM.PN ---
Subjective Subjective: Patient seen and examined. She required 1 unit PRBCs yesterday. Her hemoglobin went up 2 g after infusion. Still no flatus Vitals/I&O/Wt Last Vital Signs Temp 98.9 F 12/12/22 08:00 Pulse 86 12/12/22 08:12 Resp 16 12/12/22 08:30 BP 182/76 12/12/22 08:00 Pulse Ox 97 12/12/22 08:30 O2 Del Method Room Air 12/12/22 08:12 O2 Flow Rate 1.5 12/11/22 21:00 12/11/22 12/12/22 12/12/22 22:59 06:59 14:59 Intake Total 1000 / 2000 1000 / 1000 Output Total 1600 / 1600 1000 / 2600 Balance -1600 / -600 0 / -600 1000 / 1000 Physical Exam Narrative: Abdomen: Soft, nondistended, appropriately tender, no guarding rebound or masses Incisions clean dry and intact Urinary Catheter Management: Caldwell: Cath Placed During This Visit: yes, but has since been removed by the nurse Reason for Continuing Indwelling Catheter: Acute Urinary Retention or Obstruction Urinary Catheter Date of Insertion: 12/10/22 Urinary Catheter Time of Insertion: 17:32 Date Urinary Catheter Removed: 12/10/22 Time Urinary Catheter Discontinued: 10:15 Data 12/12/22 09:23 12/12/22 09:23 A&P Assessment and plan (1) Colonic mass: Plan Postoperative day #3 status post laparoscopic converted open right hemicolectomy IV fluids N.p.o. Await return of bowel function Attestations Medical Necessity Statement*: Patient requires multiple nights in the hospital for return of bowel function after right hemicolectomy for colon mass Coding Level of Care Code Acute Code for Chg Fwd Diagnoses Colonic mass K63.89
[2022-12-11 11:59] LABS: Blood Urea Nitrogen 6 mg/dL (8-23); Calcium 8.3 mg/dL (8.5-10.5); Carbon Dioxide 21 mmol/L (22-29); Chloride 97 mmol/L (98-107); Glucose 97 mg/dL (65-115); Magnesium 1.9 mg/dL (1.7-2.3); Osmolality Calculated 274 mOsm/kg (285-295); Sodium 133 mmol/L (136-145)
[2022-12-11 12:00] LABS: Anion Gap 18.5 (5-19); Potassium 3.5 mmol/L (3.5-5.1)
[2022-12-11] MEDS: pantoprazole 40 mg SDV IVP (12:26)
[2022-12-11 12:52] LABS: Basophils % 0.4 %; Eosinophils # 0.1 10^3/uL (0.0-0.8); Eosinophils % 0.9 %; Lymphocytes # 0.7 10^3/uL (0.8-4.8); Lymphocytes % 12.5 %; Mean Corpuscular HGB Conc 31.5 g/dL (30.0-36.0); Mean Corpuscular Hemoglobin 29.6 pg (28.0-34.0); Mean Corpuscular Volume 93.7 fl (81-99); Mean Platelet Volume 9.4 fL (7.4-10.4); Monocytes # 0.5 10^3/uL (0.2-0.9); Monocytes % 8.4 %; Neutrophils # 4.09 10^3/uL (1.8-7.7); Neutrophils % 76.5 %; Nucleated Red Blood Cells % 0 %; Platelet Count 139 10^3/cmm (130-400); Red Blood Count 1.59 10^6/uL (4.1-5.3); Red Cell Distribution Width 14.9 % (12.1-15.1); White Blood Count 5.4 10^3/uL (4.0-10.0)
[2022-12-11 12:57] LABS: Hematocrit 14.9 % (37.0-47.0); Hemoglobin 4.7 g/dL (11.5-15.3)
[2022-12-11 13:50] LABS: Hemoglobin 9.5 g/dL (11.5-15.3)
[2022-12-12] VITALS (12 sets, daily range): BP systolic 137–183; BP diastolic 64–79; PULSE 76–88; RESP 16–18; TEMP 36.5–37.5; O2SAT 95–98
[2022-12-12] MEDS: sodium chloride 0.9% 1,000 ML 125 ML IV ×3 (00:15→16:59)
[2022-12-12] MEDS: heparin 5,000 unit/mL INJ 1 mL 5000 UNIT SUBCUT ×2 (08:20→20:16)
[2022-12-12] MEDS: hyDRALAzine 20 mg/mL INJ 1 mL 10 MG IVP ×2 (08:20→19:59)
[2022-12-12] MEDS: HYDROmorphone 1 mg/mL INJ 1 mL IVP ×3 (08:30→22:15)
[2022-12-12 09:30] LABS: Basophils # 0.1 10^3/uL (0.0-0.1); Basophils % 0.6 %; Eosinophils # 0.1 10^3/uL (0.0-0.8); Eosinophils % 1.5 %; Hematocrit 28.9 % (37.0-47.0); Lymphocytes # 1.1 10^3/uL (0.8-4.8); Lymphocytes % 13.5 %; Mean Corpuscular HGB Conc 31.1 g/dL (30.0-36.0); Mean Corpuscular Volume 96.3 fl (81-99); Mean Platelet Volume 9.9 fL (7.4-10.4); Monocytes # 0.7 10^3/uL (0.2-0.9); Neutrophils # 5.88 10^3/uL (1.8-7.7); Neutrophils % 73.8 %; Nucleated Red Blood Cells % 0 %; Platelet Count 202 10^3/cmm (130-400); Red Cell Distribution Width 14.5 % (12.1-15.1)
[2022-12-12 09:50] LABS: Blood Urea Nitrogen 6 mg/dL (8-23); Calcium 8.3 mg/dL (8.5-10.5); Carbon Dioxide 20 mmol/L (22-29); Chloride 95 mmol/L (98-107); Glucose 90 mg/dL (65-115); Magnesium 1.5 mg/dL (1.7-2.3); Osmolality Calculated 273 mOsm/kg (285-295); Sodium 133 mmol/L (136-145)
[2022-12-12 10:01] LABS: Anion Gap 21.1 (5-19); Potassium 3.1 mmol/L (3.5-5.1)
--- NOTE | 2022-12-12 11:27 | P.PN_ITS ---
Subjective Subjective: Patient seen and examined. No flatus yet. Belching Vitals/I&O/Wt Last Vital Signs Temp 98.9 F 12/12/22 08:00 Pulse 86 12/12/22 08:12 Resp 16 12/12/22 08:30 BP 182/76 12/12/22 08:00 Pulse Ox 97 12/12/22 08:30 O2 Del Method Room Air 12/12/22 08:12 O2 Flow Rate 1.5 12/11/22 21:00 12/11/22 12/12/22 12/12/22 22:59 06:59 14:59 Intake Total 1000 / 2000 1000 / 1000 Output Total 1600 / 1600 1000 / 2600 Balance -1600 / -600 0 / -600 1000 / 1000 Physical Exam Narrative: Abdomen: Soft, nondistended, appropriately tender, no guarding rebound or masses Incisions clean dry and intact Urinary Catheter Management: Caldwell: Cath Placed During This Visit: yes, but has since been removed by the nurse Reason for Continuing Indwelling Catheter: Acute Urinary Retention or Obstruction Urinary Catheter Date of Insertion: 12/10/22 Urinary Catheter Time of Insertion: 17:32 Date Urinary Catheter Removed: 12/10/22 Time Urinary Catheter Discontinued: 10:15 Data 12/12/22 09:23 12/12/22 09:23 A&P Assessment and plan (1) Colonic mass: Plan Postoperative day #4 status post laparoscopic converted open right hemicolectomy IV fluids N.p.o. Await return of bowel function Attestations Medical Necessity Statement*: Patient requires multiple nights in the hospital for return of bowel function af ter right hemicolectomy for colon mass Coding Level of Care Code Acute Code for Chg Fwd Diagnoses Colonic mass K63.89
[2022-12-12] MEDS: pantoprazole 40 mg SDV IVP (12:43)
[2022-12-13] VITALS (11 sets, daily range): BP systolic 150–172; BP diastolic 62–73; PULSE 77–97; RESP 16–20; TEMP 36.6–37.1; O2SAT 95–100
[2022-12-13] MEDS: sodium chloride 0.9% 1,000 ML 125 ML IV ×3 (01:51→19:03)
[2022-12-13] MEDS: hyDRALAzine 20 mg/mL INJ 1 mL 10 MG IVP ×2 (04:28→19:53)
[2022-12-13] MEDS: HYDROmorphone 1 mg/mL INJ 1 mL IVP ×3 (04:29→20:35)
[2022-12-13] MEDS: heparin 5,000 unit/mL INJ 1 mL 5000 UNIT SUBCUT ×2 (08:54→20:16)
[2022-12-13] MEDS: pantoprazole 40 mg SDV IVP (09:26)
--- NOTE | 2022-12-13 10:42 | PM.PN ---
Subjective Subjective: Still not passing gas Vitals/I&O/Wt Last Vital Signs Temp 98.4 F 12/13/22 08:00 Pulse 81 12/13/22 08:00 Resp 18 12/13/22 08:00 BP 152/62 12/13/22 08:00 Pulse Ox 99 12/13/22 08:00 O2 Del Method Room Air 12/13/22 08:00 O2 Flow Rate 1.5 12/11/22 21:00 12/12/22 12/13/22 12/13/22 22:59 06:59 14:59 Intake Total 1000 / 2000 1000 / 3000 1000 / 1000 Output Total 600 / 1600 900 / 2500 Balance 400 / 400 100 / 500 1000 / 1000 Physical Exam GI: OTHER: Bowel sounds present. Incision clean, without inflammation or drainage. Urinary Catheter Management: Caldwell: Cath Placed During This Visit: yes, but has since been removed by the nurse Reason for Continuing Indwelling Catheter: Acute Urinary Retention or Obstruction Urinary Catheter Date of Insertion: 12/10/22 Urinary Catheter Time of Insertion: 17:32 Date Urinary Catheter Removed: 12/10/22 Time Urinary Catheter Discontinued: 10:15 Data 12/12/22 09:23 12/12/22 09:23 Attestations Medical Necessity Statement*: Acute postoperative paralytic ileus. Care for 2 midnights to resolve ileus. Coding Level of Care Code Acute Code for Chg Fwd Diagnoses
--- NOTE | 2022-12-13 10:57 | PC.SOCIAL ---
IMM update Imm updated with patient at bedside. copy of page 2 provided. Patient verbalized understanding. Copy in chart initialed, dated and timed.
[2022-12-13 17:10] LABS: Glucose Point of Care 61 mg/dL (70-110)
[2022-12-13] MEDS: glucose 40% Gel 15 gm UDC PO (17:28)
[2022-12-13 18:11] LABS: Glucose Point of Care 94 mg/dL (70-110)
--- NOTE | 2022-12-13 20:40 | PC.NURSE ---
AMBULATION Went for walk with pt in [place] with walker. Is slow and c/o back pain if she goes very far. Became weak when back just outside door to room and placed in a wheelchair to get back to bed. Going to see about getting PT to see pt
[2022-12-13 21:29] LABS: Glucose Point of Care 88 mg/dL (70-110)
[2022-12-14] VITALS (7 sets, daily range): BP systolic 158–178; BP diastolic 66–78; PULSE 78–99; RESP 16–17; TEMP 36.2–37.1; O2SAT 96–100
[2022-12-14] MEDS: HYDROmorphone 1 mg/mL INJ 1 mL IVP (04:06)
[2022-12-14] MEDS: sodium chloride 0.9% 1,000 ML 125 ML IV ×2 (04:10→10:34)
[2022-12-14] MEDS: heparin 5,000 unit/mL INJ 1 mL 5000 UNIT SUBCUT ×2 (08:27→20:25)
--- NOTE | 2022-12-14 09:31 | P.PN_ITS ---
Subjective Subjective: I'd be fine if I could just get my bowels going Vitals/I&O/Wt Last Vital Signs Temp 98 F 12/14/22 08:00 Pulse 85 12/14/22 08:00 Resp 16 12/14/22 08:00 BP 166/66 12/14/22 08:00 Pulse Ox 99 12/14/22 08:00 O2 Del Method Room Air 12/13/22 16:00 O2 Flow Rate 1.5 12/11/22 21:00 12/13/22 12/14/22 12/14/22 22:59 06:59 14:59 Intake Total 999 925 / 2925 Output Total 1250 / 1250 Balance 999 -325 / 1675 Physical Exam GI: OTHER: Abdomen remains benign with clean midline incision. Urinary Catheter Management: Caldwell: Cath Placed During This Visit: yes, but has since been removed by the nurse Reason for Continuing Indwelling Catheter: Acute Urinary Retention or Obstruction Urinary Catheter Date of Insertion: 12/10/22 Urinary Catheter Time of Insertion: 17:32 Date Urinary Catheter Removed: 12/10/22 Time Urinary Catheter Discontinued: 10:15 Data 12/12/22 09:23 12/12/22 09:23 A&P Assessment and plan (1) Paralytic ileus: Plan Persistent adynamic postoperative ileus. Reluctant to treat this aggressively, but dulcolax is probably a reasonable compromise here. Will try this. Attestations Medical Necessity Statement*: Ongoing adynamic postoperative ileus. Will need 2 midnights to resolve this. Coding Level of Care Code Acute [facility] Paralytic ileus K56.0
[2022-12-14] MEDS: pantoprazole 40 mg SDV IVP (10:24)
[2022-12-14] MEDS: bisacodyl 10 mg Supp PR ×2 (10:34→10:45)
[2022-12-14 10:39] LABS: Glucose Point of Care 84 mg/dL (70-110)
[2022-12-14] MEDS: acetaminophen 500 mg Tablet PO ×2 (17:53→22:16)
[2022-12-14] MEDS: hyDRALAzine 20 mg/mL INJ 1 mL 10 MG IVP (20:25)
[2022-12-14] MEDS: amlodipine 10 mg Tablet PO (23:54)
[2022-12-15] VITALS: BP 174/69; PULSE 80; RESP 17; TEMP 36.8; O2SAT 97
[2022-12-15 01:15] VITALS: BP 162/71; PULSE 79
[2022-12-15] MEDS: acetaminophen 500 mg Tablet PO (03:33)
[2022-12-15 04:00] VITALS: BP 164/81; PULSE 82; RESP 17; TEMP 36.8; O2SAT 96
[2022-12-15 08:00] VITALS: BP 151/78; PULSE 84; RESP 18; TEMP 36.8; O2SAT 99
[2022-12-15] MEDS: amlodipine 10 mg Tablet PO (08:32)
[2022-12-15] MEDS: heparin 5,000 unit/mL INJ 1 mL 5000 UNIT SUBCUT (08:32)
--- NOTE | 2022-12-15 09:08 | P.DS_ITS ---
Discharge Providers Date of Admission: 12/08/22 10:22 Date of Discharge: December 15, 2022 Attending Provider at Admission: Glen Farr DO Attending Provider at Discharge: Glen Farr DO Primary Care Provider: Garrett Shaffer MD Diagnoses at Discharge Discharge Diagnosis (1) Paralytic ileus: Status: Acute (2) Hx of right hemicolectomy: Status: Acute Permanent problem details: laparoscopic converted to open right hemicolectomy (3) Colonic mass: Status: Acute Reason for Visit Reason for Visit: K63.89 Hospital Course Hospital Course This very pleasant 77-year-old female who was found to have an unresectable mass/polyp of her ascending colon on colonoscopy. She underwent a laparoscopic right hemicolectomy without complication. She was tolerating diet moving her bowels upon discharge. Physical Exam Narrative: General : Patient is well developed , no acute distress, oriented x3 Head : Normal cephalic, a-traumatic. Ears : Pinnae and external canal are normal. Hearing is normal. Eyes : PERRLA, Sclera and injection are normal. No conjunctival discharge. Nose : Mucous membranes are without erythema. Throat : buccal mucosa is normal, gums are without significant recession or hypertrophy. Lungs : Equal chest rise bilaterally, no use of accessory muscles, trachea is midline. Cor : Rate and rhythm are normal. Abdomen : Soft, ND, appropriately tender, no g/r/m, incisions intact without erythema or exudate Extremities : No edema, no cyanosis or clubbing, dorsalis pedis pulses are present bilaterally, non-tender to palpation of calves. Upper extremities are normal bilaterally. Back : non-tender to palpation, no CVA tenderness. Neuro : CN II - XII intact, Upper and lower extremities have equal and full strength Urinary Catheter Management: Caldwell: Cath Placed During This Visit: yes, but has since been removed by the nurse Reason for Continuing Indwelling Catheter: Acute Urinary Retention or Obstru ction Urinary Catheter Date of Insertion: 12/10/22 Urinary Catheter Time of Insertion: 17:32 Date Urinary Catheter Removed: 12/14/22 Time Urinary Catheter Discontinued: 12:45 Discharge Data Studies Completed and Pending Completed Studies During Hospitalization Category Date Time Status XR abdomen 1V* [id number] Routine Exams 12/08/22 11:28 Completed Pathology: Surgical [PTH] Routine Pth 12/08/22 09:27 Completed Radiology Impressions Abdomen X-Ray 12/08/22 11:28 IMPRESSION: Nasogastric tube in proper position. Laboratory Results WBC 8.0 10^3/uL (4.0-10.0) 12/12/22 09: Corrected WBC Cancelled 12/11/22 11:05 RBC 3.00 10^6/uL (4.1-5.3) L 12/12/22 09: Hgb 9.0 g/dL (11.5-15.3) L 12/12/22 09: Hct 28.9 % (37.0-47.0) L 12/12/22: MCV 96.3 fl (81-99) 12/12/22 09: MCH 30.0 pg (28.0-34.0) 12/12/22: MCHC 31.1 g/dL (30.0-36.0) 12/12/22: RDW 14.5 % (12.1-15.1) 12/12/22 09: Plt Count 202 10^3/cmm (130-400) D 12/12/22 09: MPV 9.9 fL (7.4-10.4) 12/12/22 09: Gran % Cancelled 12/11/22 11:05 Neut % (Auto) 73.8 % 12/12/22 09: Lymph % (Auto) 13.5 % 12/12/22 09: Beaver % (Auto) 9.0 % 12/12/22 09: Eos % (Auto) 1.5 % 12/12/22 09: Baso % (Auto) 0.6 % 12/12/22: Neut # (Auto) 5.88 10^3/uL (1.8-7.7) 12/12/22 09: Lymph # (Auto) 1.1 10^3/uL (0.8-4.8) 12/12/22 09: Beaver # (Auto) 0.7 10^3/uL (0.2-0.9) 12/12/22 09: Eos # (Auto) 0.1 10^3/uL (0.0-0.8) 12/12/22 09: Baso # (Auto) 0.1 10^3/uL (0.0-0.1) 12/12/22 09:23 Absolute Gran (auto) Cancelled 12/11/22 11:05 Nucleated RBC % (auto) 0 % 12/12/22 09: Nucleated RBCs # 0.0 /100WBC 12/12/22 09:23 Sodium 133 mmol/L (136-145) L 12/12/22 09:23 Potassium 3.1 mmol/L (3.5-5.1) L 12/12/22 09:23 Chloride 95 mmol/L (98-107) L 12/12/22 09:23 Carbon Dioxide 20 mmol/L (22-29) L 12/12/22 09:23 Anion Gap 21.1 (5-19) H 12/12/22 09:23 BUN 6 mg/dL (8-23) L 12/12/22 09:23 Creatinine 0.5 mg/dL (0.5-0.9) 12/12/22 09: GFR Calculation Not Reportable 12/12/22 09:23 Glucose 90 mg/dL (65-115) 12/12/22 09:23 POC Glucose 84 mg/dL (70-110) 12/14/22 10:13 Calculated Osmolality 273 mOsm/kg (285-295) L 12/12/22 09:23 Calcium 8.3 mg/dL (8.5-10.5) L 12/12/22 09:23 Phosphorus 1.9 mg/dL (2.5-4.5) L 12/10/22 09:26 Magnesium 1.5 mg/dL (1.7-2.3) L 12/12/22 09:23 Total Bilirubin 0.5 mg/dL (0.15-1.2) 12/08/22 06:26 AST 20 U/L (0-32) 12/08/22 06:26 ALT 12 U/L (0-33) 12/08/22 06:26 Alkaline Phosphatase 69 U/L (35-105) 12/08/22 06:26 Total Protein 7.6 g/dL (6.6-8.7) 12/08/22 06:26 Albumin 4.5 g/dL (3.5-5.2) 12/08/22 06:26 Globulin 3.1 g/dL (1.3-4.6) 12/08/22 06:26 Carcinoembryonic Ag 6.8 ng/mL (0.0-4.7) H 12/08/22 06:26 Blood Type A Positive 12/09/22 12:12 Rho(D) Type Positive 12/09/22 12:12 Antibody Screen Negative 12/09/22 12:12 Crossmatch See Detail 12/09/22 12:12 Procedures Performed Laparoscopic right hemicolectomy Vitals Last Vital Signs Temp 98.3 F 12/15/22 11:40 Pulse 84 12/15/22 11:40 Resp 18 12/15/22 11:40 BP 151/78 12/15/22 11:40 Pulse Ox 99 12/15/22 11:40 O2 Del Method Room Air 12/15/22 08:00 O2 Flow Rate 1.5 12/14/22 08:00 Discharge Plan Discharge Patient Disposition: Home Condition: Stable Prescriptions: New DOK 100 mg capsule 100 mg PO BID Qty: 14 0RF oxycodone-acetaminophen 5-325 mg tablet 1 tab PO Q6H PRN (Reason: pain) Qty: 20 0RF Continued cholecalciferol (vitamin D3) 50 mcg (2,000 unit) capsule 50 mcg PO DAILY amlodipine 10 mg tablet 10 mg PO DAILY Qty: 90 1RF anastrozole 1 mg tablet 1 mg PO DAILY Qty: 90 5RF lisinopril 40 mg tablet 40 mg PO DAILY Qty: 90 1RF tamsulosin 0.4 mg capsule 0.4 mg PO DAILY Qty: 90 1RF atorvastatin 20 mg tablet 20 mg PO DAILY Qty: 90 1RF No Action pantoprazole 40 mg tablet,delayed release (DR/EC) 40 mg PO DAILY Qty: 90 1RF sertraline 50 mg tablet 50 mg PO DAILY Qty: 90 1RF magnesium oxide 400 mg (241.3 mg magnesium) tablet 400 mg PO DAILY Qty: 30 0RF Discharge Orders: Discharge Order (Routine); Ordered 12/15/22 Ordered By: Glen Farr Other Ambulatory Orders: DME: Kenneth (Order) Location: None Selected Ordered By: Garrett Shaffer Referrals: Glne Farr DO [Physician] - 1 week (Please call Dr. Farr's office to schedule a follow up appointment.) Garrett Shaffer MD [Primary Care Provider] - 12/18/22 1:30 pm Discharge Diet: Advance as tolerated Discharge Activity: Limit activity as instructed Patient Instructions: Oxycodone/Acetaminophen (By mouth) (Percocet, Roxicet), Laxative, Stool Softeners (By mouth), Colectomy Diet (GEN), Laparoscopic Bowel Resection (GEN), Opioid Safety Activity Restrictions/Additional Instructions: No lifting, pushing or pulling over 15 pounds for 6 weeks. Do not soak incisions underwater for 2 weeks. Shower daily. Let the glue fall off on its own. Discharge Attestations Time Spent in Discharge Care*: less than 30 min Quality Metrics Clinical Quality Measures [ No reported AMI, CVA or VTE this stay] Coding Level of Care Code Acute Code for Chg Fwd Diagnoses Paralytic ileus K56.0 Hx of right hemicolectomy Z90.49 Colonic mass K63.89
[2022-12-15] MEDS: magnesium sulfate premix 4 GM/100 ML PREMIX IV (09:54)
[2022-12-15 11:40] VITALS: BP 151/78; PULSE 84; RESP 18; TEMP 36.8; O2SAT 99
== END 2022-12-15 11:41 | disposition home or self-care (01) | DRG 330 ==
LOC: MEDSURG 10:23
PROVIDERS: Admitting Provider Surgery; PCP Family Medicine; Visit Provider Surgery
PROC: 0DTF4ZZ Resection of Right Large Intestine, Percutaneous Endoscopic Approach (ICD-10-PCS; CPT 44205; principal; 2022-12-08 07:00)
DX: D12.2 Benign neoplasm of ascending colon (principal); K56.0 Paralytic ileus; K91.89 Other postprocedural complications and disorders of digestive system; K21.9 Gastro-esophageal reflux disease without esophagitis; Z85.3 Personal history of malignant neoplasm of breast; Z85.118 Personal history of other malignant neoplasm of bronchus and lung; Z85.828 Personal history of other malignant neoplasm of skin; I10 Essential (primary) hypertension; M19.90 Unspecified osteoarthritis, unspecified site; Z90.2 Acquired absence of lung [part of]
CPT/HCPCS: 36415; 36416; 36430; 51702; 71046; 74018; 74177; 80048; 80053; 82378; 82565; 82962; 83735; 84100; 84520; 85014; 85018; 85025; 86850; 86900; 86920; 88309; 96372; 97116; 97161; C9113; J0131; J0360; J0697; J1100; J1170; J1644; J1885; J2370; J2405; J2704; J2710; J3010; J3475; J3480; J3490; J7030; P9016; P9045; Q9967

== ENCOUNTER → 2022-12-23 11:05 | Outpatient (BNVA) | payer MEDICARE, SELFPAY | PROVIDERS: PCP Family Medicine; Visit Provider Surgery | DX: Z98.890 Other specified postprocedural states (principal) | CPT/HCPCS: 99024 ==

== ENCOUNTER 2022-12-24 11:16 | Outpatient (CLI) | payer MEDICARE, SELFPAY ==
[2022-12-24 12:37] LABS: Alanine Aminotransferase 12 U/L (0-33); Albumin Level 3.7 g/dL (3.5-5.2); Alkaline Phosphatase 66 U/L (35-105); Blood Urea Nitrogen 8 mg/dL (8-23); Calcium 8.2 mg/dL (8.5-10.5); Carbon Dioxide 24 mmol/L (22-29); Chloride 97 mmol/L (98-107); Globulin 2.6 g/dL (1.3-4.6); Glucose 140 mg/dL (65-115); Magnesium 1.4 mg/dL (1.7-2.3); Osmolality Calculated 277 mOsm/kg (285-295); Sodium 133 mmol/L (136-145); Total Bilirubin 0.3 mg/dL (0.15-1.2); Total Protein 6.3 g/dL (6.6-8.7)
[2022-12-24 12:38] LABS: Anion Gap 15.7 (5-19); Aspartate Amino Transferase 24 U/L (0-32); Potassium 3.7 mmol/L (3.5-5.1)
== END 2022-12-24 11:17 | disposition home or self-care (01) ==
LOC: LAB 11:21
PROVIDERS: PCP Family Medicine; Visit Provider Family Medicine
DX: E87.6 Hypokalemia (principal); E83.42 Hypomagnesemia
CPT/HCPCS: 80053; 83735

== ENCOUNTER 2023-04-29 11:00 | Oncology outpatient (recurring) (ONCR) | payer MEDICARE, SELFPAY ==
[2023-04-29 11:55] VITALS: BP 167/73; PULSE 100; RESP 16; TEMP 36.7; O2SAT 98
[2023-04-29 12:16] LABS: Basophils % 0.6 %; Eosinophils # 0.1 10^3/uL (0.0-0.8); Eosinophils % 1.8 %; Hematocrit 31.2 % (36-47); Lymphocytes # 1.4 10^3/uL (0.8-4.8); Lymphocytes % 27.3 %; Mean Corpuscular HGB Conc 33.3 g/dL (30-55); Mean Corpuscular Hemoglobin 30.1 pg (27-33); Mean Corpuscular Volume 90.2 fl (85-98); Mean Platelet Volume 9.4 fL (7.4-10.4); Monocytes # 0.5 10^3/uL (0.2-0.9); Monocytes % 10.6 %; Neutrophils # 2.99 10^3/uL (1.8-7.7); Neutrophils % 59.5 %; Nucleated Red Blood Cells % 0 %; Platelet Count 220 10^3/cmm (157-399); Red Blood Count 3.46 10^6/uL (3.85-5.65); Red Cell Distribution Width 14.5 % (12.1-15.1); White Blood Count 5.02 10^3/uL (3.29-11.43)
[2023-04-29 12:50] LABS: Alanine Aminotransferase 8 U/L (0-33); Albumin Level 4.4 g/dL (3.5-5.2); Alkaline Phosphatase 69 U/L (35-105); Aspartate Amino Transferase 16 U/L (0-32); Blood Urea Nitrogen 15 mg/dL (8-23); CA 15-3 68.8 U/mL (0-25); Carbon Dioxide 26 mmol/L (22-29); Chloride 96 mmol/L (98-107); Creatinine Clr Calc Pharmacy 52.2051; Globulin 2.7 g/dL (1.3-4.6); Glucose 111 mg/dL (65-115); Osmolality Calculated 276 mOsm/kg (285-295); Sodium 132 mmol/L (136-145); Total Bilirubin 0.3 mg/dL (0.15-1.2); Total Protein 7.1 g/dL (6.6-8.7)
[2023-04-29 12:53] LABS: Anion Gap 14.8 (5-19); Potassium 4.8 mmol/L (3.5-5.1)
== END 2023-05-09 23:59 | disposition home or self-care (01) ==
PROVIDERS: PCP Family Medicine; Visit Provider Internal Medicine Medical Oncology
DX: D37.4 Neoplasm of uncertain behavior of colon (principal); Z17.1 Estrogen receptor negative status [ER-]; Z85.118 Personal history of other malignant neoplasm of bronchus and lung; Z85.3 Personal history of malignant neoplasm of breast; Z79.891 Long term (current) use of opiate analgesic
CPT/HCPCS: 36415; 80053; 85025; 86300; 99215

== ENCOUNTER → 2023-05-06 15:19 | Outpatient (BNVA) | payer MEDICARE, SELFPAY | PROVIDERS: PCP Family Medicine; Visit Provider Surgery | DX: K43.2 Incisional hernia without obstruction or gangrene (principal) | CPT/HCPCS: 99213 ==

== ENCOUNTER 2023-05-07 13:16 | Outpatient (CLI) | payer MEDICARE, SELFPAY ==
--- NOTE | 2023-05-07 13:30 | XR_ITS ---
WS: [id number] DEXA (DUAL ENERGY X-RAY ABSORPTIOMETRY) Bone mineral density was performed using a [employer] machine. HISTORY: Breast cancer on hormonal therapy COMPARISON: None available. Lumbar spine BMD (L1-L4): 1.055 g/cm2 T score: -1.0 Z score: 0.1 Total hip BMD: Left: 0.817 g/cm2. T score: -1.5 Z score: -0.2 Right: 0.793 g/cm2. T score: -1.7 Z score: -0.4 10 year probability of a major osteoporotic fracture is 13.9%. Curvature and asymmetric disc space narrowing in the lumbar spine. IMPRESSION: OSTEOPENIA based upon the WHO classification for females.
== END 2023-05-07 13:17 | disposition home or self-care (01) ==
PROVIDERS: PCP Family Medicine; Visit Provider Internal Medicine Medical Oncology
DX: Z78.0 Asymptomatic menopausal state (principal); Z85.118 Personal history of other malignant neoplasm of bronchus and lung; Z85.3 Personal history of malignant neoplasm of breast
CPT/HCPCS: 77080

== ENCOUNTER 2023-05-16 17:38 | Emergency (ER) | payer MEDICARE, SELFPAY ==
[2023-05-16 17:42] VITALS: BP 186/68; PULSE 81; RESP 18; TEMP 36.9; O2SAT 100; BMI 36.1
[2023-05-16 18:14] VITALS: BP 161/80; PULSE 76; O2SAT 100
--- NOTE | 2023-05-16 18:22 | CTR_ITS ---
PROCEDURE INFORMATION: Exam: CT Abdomen And Pelvis With Contrast Exam date and time: 05/16/2023 6:59 PM Age: 77 years old Clinical indication: Abdominal pain; Prior surgery; Surgery date: 6+ months; Surgery type: Lumpectomy. Gb. RT hemicolectomy. Tubal. Patient HX: C/O periumbilical pain. History of ventral hernia. ; Additional info: Abd pain, panful, enlarging umbilical hernia TECHNIQUE: Imaging protocol: Computed tomography of the abdomen and pelvis with contrast. Radiation optimization: All CT scans at this facility use at least one of these dose optimization techniques: automated exposure control; mA and/or kV adjustment per patient size (includes targeted exams where dose is matched to clinical indication); or iterative reconstruction. Contrast material: OMNI 350; Contrast volume: 100 ml; Contrast route: INTRAVENOUS (IV); REPORTING DATA: Count of CT and Cardiac NM exams in prior 12 months: This patient has received [address] and 0 known cardiac nuclear medicine studies in the 12 months prior to the current study. COMPARISON: CT abdomen pelvis w con* [id number] 12/05/2022 9:42 AM RADIATION DOSE METRICS: Total DLP (mGy-cm): 709.53 FINDINGS: Lungs: There is subpleural atelectasis of the dependent portions of the lungs. Diaphragm: A small hiatal hernia is present. Liver: Unremarkable.No mass. Gallbladder and bile ducts: There has been a cholecystectomy. There is no common bile duct dilation. Pancreas: The pancreas is normal. Spleen: The spleen is normal. Adrenal glands: The adrenal glands are normal. Kidneys and ureters: There are multiple bilateral renal collecting system versus renal vascular calcifications. There is no evidence of hydronephrosis. Stomach and bowel: Postoperative changes of prior partial colectomy. There is no evidence of intestinal perforation or obstruction. The stomach is decompressed, preventing meaningful evaluation of wall thickness. There is no evidence of colitis/diverticulitis. Appendix: No evidence of appendicitis. Intraperitoneal space: Unremarkable. No free air. No significant fluid collection. Vasculature: Unchanged extensive large atherosclerotic calcifications are noted abdomen window at the origin of the celiac artery. SMA is widely patent. There are also extensive large dense calcifications at the origin of both renal arteries. The aorta demonstrates moderate to severe atherosclerotic calcification. No aneurysm. Lymph nodes: Unremarkable.No enlarged lymph nodes. Urinary bladder: The bladder is normal. Reproductive: Unremarkable as visualized. Bones/joints: There is grade 1 degenerative anterolisthesis of L4 on L5. Diffuse moderate to severe degenerative changes are noted in the spine. No acute bony abnormality. Soft tissues: There is a large midline ventral/umbilical hernia containing a segment of colon and small bowel without obstruction or incarceration of the bowel. Mild haziness of the fat within the hernia. The defect in the abdominal wall measures 6.4 cm medial to lateral and 6 cm superior to inferior. CT/CT abdomen pelvis w con* [id number] IMPRESSION: 1. There is a large midline ventral/umbilical hernia containing a segment of colon and small bowel without obstruction or incarceration of the bowel. No bowel obstruction. Mild haziness of the fat within the hernia. 2. Unchanged extensive large atherosclerotic calcifications are noted abdomen window at the origin of the celiac artery. SMA is widely patent. There are also extensive large dense calcifications at the origin of both renal arteries.
[2023-05-16] MEDS: ketorolac 30 mg/mL INJ 15 MG IVP (18:28)
[2023-05-16 18:30] VITALS: PULSE 66; O2SAT 99
--- NOTE | 2023-05-16 18:32 | ED_ITS ---
HPI - Abdominal Pain General: Chief Complaint: Abdominal Pain Stated Complaint: abd pain Time Seen by Provider: 05/16/23 17:56 History of Present Illness: Patient states worsening periumbilical abdominal pain. Patient has a known umbilical hernia with. Patient is seeing Dr. Farr and has plans on having it fixed on the 16th of this month. Patient states her abdominal cavity has kept getting bigger and is putting more pressure on her hernia and is hurting worse. Review of Systems General: Reports: 10 or more systems reviewed and unremarkable except in HPI and below PFSH ED PFSH: Medical History Gallstone GERD (gastroesophageal reflux disease) History of breast cancer History of lung cancer History of nonmelanoma skin cancer Hypercholesteremia Hypertension Osteoarthritis Tendonitis bilateral wrists Surgical History History of bilateral tubal ligation History of colectomy History of esophagogastroduodenoscopy (EGD) 10+ yrs History of laparoscopic cholecystectomy History of lumpectomy of left breast History of lung surgery cancer removal Hx of colonoscopy 10+ Hx of right hemicolectomy laparoscopic converted to open right hemicolectomy Family History Family/Other Breast cancer Aunt/Maternal Grandmother Breast cancer Maternal Father Heart disease Denies family history of Colon cancer Ovarian cancer Diabetes Hypertension Uterine cancer Thyroid disease Stroke Social History Smoking and tobacco status: former smoker Quit status (tobacco): has quit using tobacco Year quit tobacco: 1999 Former quit date comment: Smoked for 35 years Alcohol intake: never Substance/Drug Use: never Lives independently: Yes Do you think of yourself as: Straight/Heterosexual Physical Exam Const: COMMON NORMALS: no acute distress, average body habitus, patient oriented x3, no limitations, healthy appearing, alert and well nourished HENMT: COMMON NORMALS: normocephalic, atraumatic, hearing grossly normal bilaterally, external ears normal, Normal external nose present and moist oral mucous membranes HEAD & SCALP: normocephalic and atraumatic NOSE: Normal external nose present EXTERNAL EAR: Yes external ears normal Eye: COMMON NORMALS: Equal, round and reactive pupils present, EOMs intact bilaterally, conjunctivae normal and no scleral icterus CONJUNCTIVA: Yes conjunctivae normal PUPIL: Yes Equal, round and reactive pupils present Neck/C-Spine: COMMON NORMALS: full ROM, no lymphadenopathy, supple, no meningeal signs, no JVD and Thyroid normal THYROID: Thyroid normal Lymph: LYMPHATIC: no lymphadenopathy noted and no lymphedema noted Chest: COMMONS NORMALS: normal inspection of the chest and normal palpation of entire chest wall Resp: COMMON NORMALS: normal respiratory effort, No retractions, No use of accessory muscles and clear to auscultation bilaterally AUSCULTATION: clear to auscultation bilaterally Cardio: COMMON NORMALS: no JVD, regular rate, regular rhythm, S1 normal heart sound present, S2 normal heart sound present, No gallops present (Cardio), No clicks present (Cardio), No murmurs present (Cardio) and No rub (Cardio) RATE: regular rate RHYTHM: regular rhythm HEART SOUNDS: S1 normal heart sound present and S2 normal heart sound present GI: COMMON NORMALS: Normal to inspection, nondistended, normoactive bowel soun ds present, Soft to palpation, No hepatosplenomegaly present and no masses; negative for non-tender (Mildly tender to palpation over periumbilical region.) PALPATION: Yes Soft to palpation and Yes No hepatosplenomegaly present : COMMON NORMALS: Yes no CVA tenderness BLADDER/KIDNEY EXAM: Yes no CVA tenderness Back/Pelvis: COMMON NORMALS: no CVA tenderness Neuro: COMMON NORMALS: patient oriented x3 SENSORIUM/ORIENTATION: Yes alert MENINGEAL SIGNS: Yes no meningeal signs Course Vital Signs: Vital signs: Vital Signs Temperature 98.4 F 05/16/23 17:42 Pulse Rate 66 05/16/23 18:30 Respiratory Rate 18 05/16/23 17:42 Blood Pressure 161/80 05/16/23 18:14 Pulse Oximetry 99 05/16/23 18:30 MDM - Abdominal Pain Medical Decision Making Presented to the ER with complaints of her abdomen being bigger than normal and having more pain than usual. Patient's has a known ventral hernia and has scheduled abdominal surgery on the with Dr. Farr. Lab work was obtained abdomen pelvis CT was obtained with contrast that showed a large hernia containing a segment of colon and small bowel without incarceration or obstruction. These results was discussed with the patient. Patient should continue to keep her appointment with Dr. Farr for surgery unless things change then she should return to the ER. Differential Diagnosis Likely abdominal pain; Unlikely acute appendicitis, calculus of kidney, constipation, diverticulitis, endometriosis, gastroenteritis, pancreatitis or small bowel obstruction Medical Records I reviewed the patient's medical records. Lab Data I reviewed the patient's lab results. 05/16/23 18:18 05/16/23 18:18 Labs/Radiology: Radiology Impressions Abdomen/Pelvis CT 05/16/23 18:22 IMPRESSION: 1. There is a large midline ventral/umbilical hernia containing a segment of colon and small bowel without obstruction or incarceration of the bowel. No bowel obstruction. Mild haziness of the fat within the hernia. 2. Unchanged extensive large atherosclerotic calcifications are noted abdomen window at the origin of the celiac artery. SMA is widely patent. There are also extensive large dense calcifications at the origin of both renal arteries. Laboratory Results WBC 5.98 10^3/uL (3.29-11.43) 05/16/23 18:18 RBC 3.67 10^6/uL (3.85-5.65) L 05/16/23 18:18 Hgb 11.10 g/dL (11.27-16.99) L 05/16/23 18:18 Hct 32.6 % (36-47) L 05/16/23 18:18 MCV 88.8 fl (85-98) 05/16/23 18:18 MCH 30.2 pg (27-33) 05/16/23 18:18 MCHC 34.0 g/dL (30-55) 05/16/23 18:18 RDW 13.9 % (12.1-15.1) 05/16/23 18:18 Plt Count 242 10^3/cmm (157-399) 05/16/23 18:18 MPV 9.7 fL (7.4-10.4) 05/16/23 18:18 Neut % (Auto) 55.2 % 05/16/23 18:18 Lymph % (Auto) 30.3 % 05/16/23 18:18 Tripp % (Auto) 11.5 % 05/16/23 18:18 Eos % (Auto) 2.0 % 05/16/23 18:18 Baso % (Auto) 0.7 % 05/16/23 18:18 Neut # (Auto) 3.30 10^3/uL (1.8-7.7) 05/16/23 18:18 Lymph # (Auto) 1.8 10^3/uL (0.8-4.8) 05/16/23 18:18 Tripp # (Auto) 0.7 10^3/uL (0.2-0.9) 05/16/23 18:18 Eos # (Auto) 0.1 10^3/uL (0.0-0.8) 05/16/23 18:18 Baso # (Auto) 0.0 10^3/uL (0.0-0.1) 05/16/23 18:18 Nucleated RBC % (auto) 0 % 05/16/23 18:18 Nucleated RBCs # 0.0 /100WBC 05/16/23 18:18 Sodium 128 mmol/L (136-145) L 05/16/23 18:18 Potassium 4.2 mmol/L (3.5-5.1) 05/16/23 18:18 Chloride 92 mmol/L (98-107) L 05/16/23 18:18 Carbon Dioxide 24 mmol/L (22-29) 05/16/23 18:18 Anion Gap 16.2 (5-19) 05/16/23 18:18 BUN 15 mg/dL (8-23) 05/16/23 18:18 Creatinine 1.1 mg/dL (0.5-0.9) H 05/16/23 18:18 GFR Calculation Not Reportable 05/16/23 18:18 Glucose 112 mg/dL (65-115) 05/16/23 18:18 Calculated Osmolality 268 mOsm/kg (285-295) L 05/16/23 18:18 Calcium 9.5 mg/dL (8.5-10.5) 05/16/23 18:18 Total Bilirubin 0.3 mg/dL (0.15-1.2) 05/16/23 18:18 AST 15 U/L (0-32) 05/16/23 18:18 ALT 9 U/L (0-33) 05/16/23 18:18 Alkaline Phosphatase 87 U/L (35-105) 05/16/23 18:18 Total Protein 7.7 g/dL (6.6-8.7) 05/16/23 18:18 Albumin 4.6 g/dL (3.5-5.2) 05/16/23 18:18 Globulin 3.1 g/dL (1.3-4.6) 05/16/23 18:18 All radiology interpretation(s) finalized by discharge Discharge Plan Discharge Patient Disposition: Home Clinical Impression: Hernia, umbilical Qualifiers: Obstruction and gangrene presence: without obstruction or gangrene Qualified Code(s): K42.9 - Umbilical hernia without obstruction or gangrene Abdominal pain Qualifiers: Abdominal location: periumbilical Qualified Code(s): R10.33 - Periumbilical pain Condition: Stable Prescriptions: No Action Colon Cleanz See Rx Instructions PO .QOD Rx Instructions: Unknown dosage orally QOD; calcium carbonate 600 mg calcium (1,500 mg) tablet 600 mg PO DAILY magnesium oxide 400 mg magnesium tablet 400 mg PO DAILY sertraline 100 mg tablet 100 mg PO DAILY Qty: 60 1RF pantoprazole 40 mg tablet,delayed release (DR/EC) 40 mg PO DAILY Qty: 90 1RF polyethylene glycol 3350 [Miralax] 17 gram/dose powder 17 g PO DAILY Qty: 238 4RF meloxicam 15 mg tablet 15 mg PO DAILY Qty: 90 1RF tamsulosin 0.4 mg capsule 0.4 mg PO DAILY Qty: 90 1RF trazodone 50 mg tablet 25 mg PO DAILY Qty: 60 1RF atorvastatin 20 mg tablet 20 mg PO DAILY Qty: 90 1RF anastrozole 1 mg tablet 1 mg PO DAILY Qty: 90 5RF amlodipine 10 mg tablet 10 mg PO DAILY Qty: 90 1RF lisinopril 40 mg tablet 40 mg PO DAILY Qty: 90 0RF Discharge Orders: Discharge ED (Routine); Ordered 05/16/23 Ordered By: Randy Abreu Referrals: Garrett Shaffer MD [Primary Care Provider] - 1 week Patient Instructions: Abdominal Pain (ED), Umbilical Hernia Activity Restrictions/Additional Instructions: Please keep your appointment already scheduled with Dr. Farr for repair of your umbilical hernia. Please continue take all medicine as directed. If your pain worsens and/or changes and becomes unbearable please feel free to return to the ER for further evaluation and treatment. Coding Level of Care Code ED Edge Glue Machine Tender for Sahra Leal
[2023-05-16 18:33] LABS: Basophils % 0.7 %; Eosinophils # 0.1 10^3/uL (0.0-0.8); Hematocrit 32.6 % (36-47); Lymphocytes # 1.8 10^3/uL (0.8-4.8); Lymphocytes % 30.3 %; Mean Corpuscular Hemoglobin 30.2 pg (27-33); Mean Corpuscular Volume 88.8 fl (85-98); Mean Platelet Volume 9.7 fL (7.4-10.4); Monocytes # 0.7 10^3/uL (0.2-0.9); Monocytes % 11.5 %; Neutrophils % 55.2 %; Nucleated Red Blood Cells % 0 %; Platelet Count 242 10^3/cmm (157-399); Red Blood Count 3.67 10^6/uL (3.85-5.65); Red Cell Distribution Width 13.9 % (12.1-15.1); White Blood Count 5.98 10^3/uL (3.29-11.43)
--- NOTE | 2023-05-16 18:54 | PC.NURSE ---
Report taken from SUPRIYA Bell at this time.
[2023-05-16 18:57] LABS: Alanine Aminotransferase 9 U/L (0-33); Albumin Level 4.6 g/dL (3.5-5.2); Alkaline Phosphatase 87 U/L (35-105); Anion Gap 16.2 (5-19); Aspartate Amino Transferase 15 U/L (0-32); Blood Urea Nitrogen 15 mg/dL (8-23); Calcium 9.5 mg/dL (8.5-10.5); Carbon Dioxide 24 mmol/L (22-29); Chloride 92 mmol/L (98-107); Globulin 3.1 g/dL (1.3-4.6); Glucose 112 mg/dL (65-115); Osmolality Calculated 268 mOsm/kg (285-295); Potassium 4.2 mmol/L (3.5-5.1); Sodium 128 mmol/L (136-145); Total Bilirubin 0.3 mg/dL (0.15-1.2); Total Protein 7.7 g/dL (6.6-8.7)
[2023-05-16] MEDS: iohexol 350 mg/mL 500 mL Btl (per mL) IV (19:04)
== END 2023-05-16 20:56 | disposition home or self-care (01) ==
PROVIDERS: Emergency Provider Emergency Medicine; PCP Family Medicine
DX: K42.9 Umbilical hernia without obstruction or gangrene (principal); Z87.891 Personal history of nicotine dependence; Z85.3 Personal history of malignant neoplasm of breast; Z85.118 Personal history of other malignant neoplasm of bronchus and lung; I10 Essential (primary) hypertension
CPT/HCPCS: 74177; 80053; 85025; 96374; 99285; J1885; Q9967

== ENCOUNTER 2023-05-18 13:13 | Outpatient (CLI) | payer MEDICARE, SELFPAY ==
--- NOTE | 2023-05-18 13:30 | CT_ITS ---
WS: [id number] CT CHEST TECHNIQUE: Contrast enhanced CT of the chest with coronal and sagittal reformatted images. CLINICAL INFORMATION: Follow up breast cancer on hormonal therapy COMPARISON: None. DLP: 340.[address] scans at [facility] use at least one of these dose optimization techniques: automated e xposure control; mA and/or kV adjustment per patient size (includes targeted exams where dose is matc hed to clinical indication); or iterative reconstruction. FINDINGS: Moderate chronic emphysematous changes. Moderate aortic calcification. Normal caliber thoracic aorta. Proximal main pulmonary arteries are normal. No mediastinal or hilar lymphadenopathy. No axillary ly mphadenopathy. Prior postoperative changes lumpectomy LEFT breast with LEFT breast surgical clips. Sm all esophageal hiatal hernia. Diffuse fatty filtration of the liver. Normal portal vein and splenic vein. Adrenal glands are normal . Subsegmental atelectasis in the RIGHT middle lobe. Thoracolumbar curve. Dense calcification with se cynthia stenosis at the celiac artery origin. SMA is patent. Dense calcification at the renal artery ost ia partially visualized. IMPRESSION: 1. Moderate chronic emphysematous changes. 2. No suspicious pulmonary parenchymal opacities. Subsegmental atelectasis in the RIGHT middle lobe. 3. Prior postoperative changes LEFT breast lumpectomy. 4. No mediastinal or hilar lymphadenopathy. No axillary lymphadenopathy. 5. Prior cholecystectomy. 6. Small esophageal hiatal hernia. 7. 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
[2023-05-18] MEDS: iohexol 350 mg/mL 500 mL Btl (per mL) IV (13:36)
== END 2023-05-18 13:14 | disposition home or self-care (01) ==
LOC: RAD 13:13
PROVIDERS: PCP Family Medicine; Visit Provider Internal Medicine Medical Oncology
DX: C50.919 Malignant neoplasm of unspecified site of unspecified female breast (principal); Z79.899 Other long term (current) drug therapy; Z85.118 Personal history of other malignant neoplasm of bronchus and lung; Z85.3 Personal history of malignant neoplasm of breast
CPT/HCPCS: 71260; Q9967

== ENCOUNTER 2023-05-25 05:37 | Day surgery (SDC) | payer MEDICARE, SELFPAY ==
[2023-05-22 11:10] VITALS: BMI 25.1
[2023-05-25] VITALS (13 sets, daily range): BP systolic 96–179; BP diastolic 48–95; PULSE 54–76; RESP 12–18; TEMP 36.2–36.6; O2SAT 92–100; BMI 36.3
--- NOTE | 2023-05-25 06:12 | ECG_ITS ---
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 Measurements Intervals [place] Rate: 62 P: -17 MD: 160 QRS: 3 QRSD: 85 T: 31 QT: 401 QTc: 407 Interpretive Statements SINUS RHYTHM Compared to ECG 11/06/2022 07:45:44 No significant changes Electronically Signed On 05-25-2023 23:19:35 CDT by Glory Connor M.D. [id number]
[2023-05-25] MEDS: sodium chloride 0.9% 1,000 ML 30 ML IV (06:23)
--- NOTE | 2023-05-25 06:44 | ANES.PREANE2 ---
Pre-Anesthetic Assessment Height/Weight: Height 1.5 m Weight 81.647 kg Temp Pulse Resp BP Pulse Ox O2 Del Method 97.2 F L 76 17 179/95 97 Room Air 05/25/23 06:00 05/25/23 06:00 05/25/23 06:00 05/25/23 06:00 05/25/23 06:00 05/25/23 06:00 Operation Date: 05/25/23 07:00 Proposed Procedures p 96878 lap repair of incisional hernia repair with mesh K43.2(Not Applicable) - Glen Farr DO Familial anesthetic complications: None Was Beta Kita taken within 24 hours: N/A Was Clonidine taken within 24 hours: N/A Last intake: Intake Last Liquid Date 05/24/23 Last Liquid Time 18:00 Last Solid Date 05/24/23 Last Solid Time 18:00 Social No alcohol and No tobacco Exam alert, oriented x 3, clear to auscultation bilaterally and regular rate & rhythm Airway Mallampati: Class III Dentition: full Pulmonary Asthma CV/HEM Hypertension GI Gastroesophageal Reflux Disease Metabolic Morbid Obesity Anesthetic Plan ASA status: 3 Anesthesia: General Risk of > 500 ml blood loss (7ml/kg in children): No Medications/Allergies Home Medications Medication Instructions Recorded Confirmed Last Taken Type anastrozole 1 mg tablet 1 mg PO DAILY #90 tabs 06/16/22 05/25/23 05/24/23 Rx amlodipine 10 mg tablet 10 mg PO DAILY #90 tabs 03/09/23 05/25/23 05/24/23 Rx lisinopril 40 mg tablet 40 mg PO DAILY #90 tabs 03/26/23 05/22/23 05/23/23 Rx Colon Cleanz See Rx Instructions PO .QOD 04/29/23 05/06/23 Unknown History calcium carbonate 600 mg calcium 600 mg PO DAILY 04/29/23 05/25/23 05/23/23 History (1,500 mg) tablet magnesium oxide 400 mg PO DAILY 04/29/23 05/25/23 05/23/23 History atorvastatin 20 mg tablet 20 mg PO DAILY #90 tabs 04/30/23 05/25/23 05/24/23 Rx meloxicam 15 mg tablet 15 mg PO DAILY #90 tabs 04/30/23 05/25/23 05/23/23 Rx pantoprazole 40 mg tablet,delayed 40 mg PO DAILY #90 tabs 04/30/23 05/25/23 05/24/23 Rx release sertraline 100 mg tablet 100 mg PO DAILY #60 tabs 04/30/23 05/25/23 05/24/23 Rx tamsulosin 0.4 mg capsule 0.4 mg PO DAILY #90 caps 04/30/23 05/25/23 05/24/23 Rx trazodone 50 mg tablet 25 mg PO DAILY #60 tabs 04/30/23 05/25/23 05/24/23 Rx polyethylene glycol 3350 17 17 g PO DAILY PRN Constipation 05/22/23 05/22/23 Unknown History gram/dose oral powder (Miralax) Allergies Allergy/AdvReac Type Severity Reaction Status Date / Time No Known Allergies Allergy Verified 04/30/23 10:26 Current Medications Generic Name Dose Route Start Last Admin Trade Name Freq PRN Reason Stop Dose Admin Sodium Chloride 1,000 mls @ 30 mls/hr 05/25/23 06:00 05/25/23 06:23 Sodium Chloride 0.9% IV 05/26/23 05:59 30 mls/hr .Q24H KAYLEEN Administration PFSH Anesthesia Medical History Gallstone GERD (gastroesophageal reflux disease) History of breast cancer History of lung cancer History of nonmelanoma skin cancer Hypercholesteremia Hypertension Osteoarthritis Tendonitis bilateral wrists Surgical History History of bilateral tubal ligation History of colectomy History of esophagogastroduodenoscopy (EGD) 10+ yrs History of laparoscopic cholecystectomy History of lumpectomy of left breast History of lung surgery cancer removal Hx of colonoscopy 10+ Hx of right hemicolectomy laparoscopic converted to open right hemicolectomy Family History Family/Other Breast cancer Aunt/Maternal Grandmother Breast cancer Maternal Father Heart disease Denies family history of Colon cancer Ovarian cancer Diabetes Hypertension Uterine cancer Thyroid disease Stroke Social History Smoking and tobacco/nicotine status: former use of tobacco/nicotine Quit status (tobacco/nicotine): has quit using Year quit tobacco: 1999 Former quit date comment: Smoked for 35 years Alcohol intake: never Substance/Drug Use: never Lives independently: Yes Do you think of yourself as: Straight/Heterosexual Data Anesthesia Cardiac Studies: No Data to Display
--- NOTE | 2023-05-25 06:59 | W.PM.OPSUD ---
Surgery/Procedure H&P Update DATE OF PROCEDURE: May 25, 2023 DATE H&P PERFORMED: 05/06/23 H&P UPDATE INFORMATION: I have reviewed H&P completed within last 30 days, I have examined patient prior to procedure and No changes to prior documentation PLANNED PROCEDURE: Operation Date: 05/25/23 07:00 Proposed Procedures p 69632 lap repair of incisional hernia repair with mesh K43.2(Not Applicable) - Glen Farr, DO
[2023-05-25] MEDS: ceFAZolin 2,000 MG in sodium chloride 0.9% (plus) 50 ML 100 MG IV (07:06)
[2023-05-25] MEDS: lidocaine-epi 2% 20 mL INJ 10 ML INJECTION (07:29)
--- NOTE | 2023-05-25 08:18 | P.OP_ITS ---
Operative Report Date of procedure: May 25, 2023 Pre-op diagnosis: Incisional hernia Post-op diagnosis: same Procedure done: Laparoscopic repair of incisional hernia with mesh Extensive lysis of adhesions Implants: 8 inch round Ventralight mesh Specimens removed/disposition: Hernia sac Surgeon: Glen Farr DO Anesthesia: General Estimated blood loss (mL): 5 Complications: None apparent Brief History: This is a very pleasant 77-year-old female who has an incisional hernia. Laparoscopic repair with mesh was indicated. The risk and benefits were explained and documented. Procedure: Patient was wheeled into the operative room and placed on the OR table in a supine position. Abdomen was inspected prepped and draped in usual sterile fashion. Time-out was performed and all present were in agreement. A 15 blade scalp was used to make a 5 millimeter incision left upper quadrant. A Veress needle was placed into the incision and intra-abdominal insufflation was brought to 15 millimeters of mercury. A 12 millimeter trocar was placed into the left l ower quadrant. There was a substantial amount of omental and small bowel adhesions throughout the abdomen and in the hernia sac. Meticulous dissection was performed with LigaSure to take down the bowel and omentum. Greater than 30 minutes of laparoscopic lysis of adhesions was performed. After 5 cm of clearance all around the rim of the hernia was performed, the energy but device was then used to cut out the hernia sac. An 8 inch Ventralight mesh was placed into the abdomen and brought up through the umbilicus using an the Erasmo- Liam. The mesh was then tacked in place in a double crown fashion. The skeleton of the mesh was removed via the left lower quadrant. The hernia sac was then removed from the abdomen via the left lower quadrant. The left lower quadrant port site was closed with an 0 Vicryl suture in a Erasmo-Liam in a [id number] fashion. Incisions were closed with 4 O Vicryl in a subcuticular interrupted fashion. Skin glue was applied. A dressing that in cluded cotton balls and a Tegaderm was placed over the umbilicus. Patient tolerated the procedure well.
[2023-05-25] MEDS: fentaNYL 50 mcg/mL INJ 2mL IVP (08:48)
[2023-05-25] MEDS: HYDROmorphone 1 mg/mL INJ 1 mL 0.5 MG IVP (09:14)
[2023-05-25] MEDS: HYDROcodone-acetaminophen 10-325 mg Tablet 1 TAB PO (09:37)
--- NOTE | 2023-05-25 10:10 | ANE.PACU2 ---
Inpatient post-anesthesia follow up: Airway intact: Yes Vital signs: Temperature 97.2 F Pulse Rate 60 Respiratory Rate 17 Blood Pressure 131/55 Pulse Oximetry 93 Oxygen Delivery Me thod Room Air Oxygen Flow Rate 6 Fraction of Inspir ed Oxygen Hydration adequate: Yes Nausea and vomiting: No Pain level: 1 Mental status: Baseline
== END 2023-05-25 10:12 | disposition home or self-care (01) ==
PROVIDERS: PCP Family Medicine; Visit Provider Surgery
PROC: 0WQF4ZZ Repair Abdominal Wall, Percutaneous Endoscopic Approach (ICD-10-PCS; CPT 49593; principal; 2023-05-25 07:00)
DX: K43.2 Incisional hernia without obstruction or gangrene (principal); K66.0 Peritoneal adhesions (postprocedural) (postinfection); I10 Essential (primary) hypertension; K21.9 Gastro-esophageal reflux disease without esophagitis; E66.01 Morbid (severe) obesity due to excess calories; Z68.36 Body mass index [BMI] 36.0-36.9, adult; Z85.3 Personal history of malignant neoplasm of breast; Z85.118 Personal history of other malignant neoplasm of bronchus and lung; Z87.891 Personal history of nicotine dependence
CPT/HCPCS: 49593; 88302; 93005; C1781; J0690; J1100; J1170; J2371; J2405; J2704; J2710; J3010; J3490; J7030

== ENCOUNTER 2023-05-25 21:03 | Emergency (ER) | payer MEDICARE, SELFPAY ==
[2023-05-25 21:17] VITALS: BP 151/76; PULSE 87; RESP 18; TEMP 37; O2SAT 98; BMI 36.3
--- NOTE | 2023-05-25 21:44 | ED_ITS ---
HPI - Female Genitourinary General: Chief complaint: Urogenital-Female Stated complaint: cant void post surgery Time Seen by Provider: 05/25/23 21:16 Source: patient and family Mode of arrival: wheelchair Limitations: no limitations History of Present Illness: Patient presents emergency department today for evaluation treatment of urinary retention. Patient had hernia repair surgery with Dr. Farr earlier this morning. She reports that she has not had any urinary output since her procedure. Family notes that the last time patient had surgery, she also had urinary retention requiring a catheter placement however, patient was still admitted in the hospital when this occurred. Patient reports a lot of pressure and pain in her lower abdomen. She states she has the urge to urinate but is u nable to pass urine. Review of Systems General: Reports: 10 or more systems reviewed and unremarkable except in HPI and below PFSH ED PFSH: Medical History Gallstone GERD (gastroesophageal reflux disease) History of breast cancer History of lung cancer History of nonmelanoma skin cancer Hypercholesteremia Hypertension Osteoarthritis Tendonitis bilateral wrists Surgical History History of bilateral tubal ligation History of colectomy History of esophagogastroduodenoscopy (EGD) 10+ yrs History of laparoscopic cholecystectomy History of lumpectomy of left breast History of lung surgery cancer removal Hx of colonoscopy 10+ Hx of right hemicolectomy laparoscopic converted to open right hemicolectomy Family History Family/Other Breast cancer Aunt/Maternal Grandmother Breast cancer Maternal Father Heart disease Denies family history of Colon cancer Ovarian cancer Diabetes Hypertension Uterine cancer Thyroid disease Stroke Social History Smoking and tobacco/nicotine status: former use of tobacco/nicotine Quit status (tobacco/nicotine): has quit using Year quit tobacco: 1999 Former quit date comment: Smoked for 35 years Alcohol intake: never Substance/Drug Use: never Lives independently: Yes Do you think of yourself as: Straight/Heterosexual Physical Exam Const: COMMON NORMALS: average body habitus, patient oriented x3 and alert; apparent distress OTHER: Patient is pleasant and social but obviously uncomfortable. HENMT: COMMON NORMALS: normocephalic, atraumatic, hearing grossly normal bilaterally and moist oral mucous membranes HEAD & SCALP: normocephalic and atraumatic Eye: COMMON NORMALS: Equal, round and reactive pupils present, EOMs intact bilaterally and conjunctivae normal CONJUNCTIVA: Yes conjunctivae normal PUPIL: Yes Equal, round and reactive pupils present Neck/C-Spine: COMMON NORMALS: no JVD Lymph: LYMPHATIC: no lymphadenopathy noted Resp: COMMON NORMALS: normal respiratory effort, No retractions and No use of accessory muscles Cardio: COMMON NORMALS: no JVD and regular rate RATE: regular rate Extremity: COMMON NORMALS: normal to inspection, full ROM and capillary refill normal Neuro: COMMON NORMALS: patient oriented x3 SENSORIUM/ORIENTATION: Yes alert Psych: COMMON NORMALS: mental status grossly normal, cooperative, normal affect, speech normal and activity/motor behavior normal SPEECH: Yes normal speech Course Vital Signs: Vital signs: Vital Signs Temperature 98.6 F 05/25/23 21:17 Pulse Rate 87 05/25/23 21:17 Respiratory Rate 18 05/25/23 21:17 Blood Pressure 151/76 05/25/23 21:17 Pulse Oximetry 98 05/25/23 21:17 Oxygen Delivery Me thod Room Air 05/25/23 21:17 MDM - Female Medical Decision Making Patient's chart review does show that the last time she was hospitalized for surgery she required Caldwell catheter however, ability to urinate independently returned after approximately 24 hours. Patient had approximately 800 cc by bladder scan upon arrival to the ER. Caldwell catheter was placed and slow draining performed to prevent hypotension. Patient tolerated Caldwell placement and drainage without difficulty. Patient is to follow-up with her primary care doctor in 24 to 48 hours to have her Caldwell catheter removed and to attempt independent return to urinary voiding. Patient was told to watch for return of low abdominal pains or decreased/no urinary output into the Caldwell catheter. If that occurs she needs to return back here to the emergency room. Patient and daughter verbalized understanding and agreement to treatment plan. Differential Diagnosis Likely abdominal pain; Unlikely acute appendicitis, calculus of kidney, constipation, diverticulitis, endometriosis, gastroenteritis, pancreatitis or small bowel obstruction Lab Data Laboratory Results Urine Color Yellow (Yellow) 05/25/23 22:27 Urine Appearance Clear (CLEAR) 05/25/23 22:27 Urine pH 6 (5-7) 05/25/23 22:27 Ur Specific [place] 1.020 (1.005-1.030) 05/25/23 22:27 Urine Protein Neg (Negative) 05/25/23 22:27 Urine Glucose (UA) Norm (Normal) 05/25/23 22:27 Urine Ketones Negative (Negative) 05/25/23 22:27 Urine Blood Neg (Negative) 05/25/23 22:27 Urine Nitrate Negative (Negative) 05/25/23 22:27 Urine Bilirubin Neg (Negative) 05/25/23 22:27 Urine Urobilinogen Norm mg/dL (Negative) 05/25/23 22:27 Ur Leukocyte Esterase Negative (Negative) 05/25/23 22:27 No radiology studies performed this visit Discharge Plan Discharge Patient Disposition: Home Clinical Impression: Postoperative urinary retention Condition: Stable Prescriptions: No Action Colon Cleanz See Rx Instructions PO .QOD Rx Instructions: Unknown dosage orally QOD; calcium carbonate 600 mg calcium (1,500 mg) tablet 600 mg PO DAILY magnesium oxide 400 mg magnesium tablet 400 mg PO DAILY sertraline 100 mg tablet 100 mg PO DAILY Qty: 60 1RF pantoprazole 40 mg tablet,delayed release (DR/EC) 40 mg PO DAILY Qty: 90 1RF meloxicam 15 mg tablet 15 mg PO DAILY Qty: 90 1RF Hold Instructions: Resume on 05/28/23. tamsulosin 0.4 mg capsule 0.4 mg PO DAILY Qty: 90 1RF trazodone 50 mg tablet 25 mg PO DAILY Qty: 60 1RF atorvastatin 20 mg tablet 20 mg PO DAILY Qty: 90 1RF anastrozole 1 mg tablet 1 mg PO DAILY Qty: 90 5RF amlodipine 10 mg tablet 10 mg PO DAILY Qty: 90 1RF lisinopril 40 mg tablet 40 mg PO DAILY Qty: 90 0RF Miralax 17 gram/dose powder 17 g PO DAILY PRN (Reason: Constipation) hydrocodone-acetaminophen 10-325 mg tablet 1 tab PO Q6H PRN (Reason: pain) Qty: 20 0RF Rx Instructions: May take half of a tab at a time Colace 100 mg capsule 100 mg PO BID Qty: 14 0RF Discharge Orders: Discharge ED (Routine); Ordered 05/25/23 Ordered By: Brandy Chiu Referrals: Garrett Shaffer MD [Primary Care Provider] - Discharge Diet: As Directed Discharge Activity: Limit activity as instructed Patient Instructions: Acute Urinary Retention in Women (ED) Activity Restrictions/Additional Instructions: Continue to adhere to your surgeons postoperative recommendations. We were able to drain almost 800 cc of fluid from your bladder indicating acute urinary retention after surgery. I did look back into your chart and it does appear that you resolved your urinary retention after your last procedure within about 24 hours. We recommend you notify your primary care doctor for [place] in the morning to make them aware of your need for a Caldwell catheter at this time as they can remove it in the office in 24 to 48 hours to see if urinary function has spontaneously returned. Watch for return of low abdominal pains similar to the urinary retention pain you experienced prior to arrival or, if you notice decreased or no urinary output into your Caldwell bag you need to be seen back here in the emergency department. Coding Level of Care Code ED Manager Core for Sahra Leal
[2023-05-25 22:34] LABS: Add Urine Microscopic? NO; Charge for UA Resulting for Rev
[2023-05-25 22:38] LABS: Bilirubin Urine Neg (Negative); Blood Urine Neg (Negative); Glucose Urine UA Norm (Normal); Ketones Urine Negative (Negative); Leukocyte Esterase Urine Negative (Negative); Nitrate Urine Negative (Negative); Protein Urine Neg (Negative); Urine Appearance Clear (CLEAR); Urine Color Yellow (Yellow); Urobilinogen Urine Norm (Negative); pH Urine 6 (5-7)
== END 2023-05-25 22:48 | disposition home or self-care (01) ==
PROVIDERS: Emergency Provider Physician Assistant; PCP Family Medicine
DX: R33.8 Other retention of urine (principal)
CPT/HCPCS: 51702; 51798; 81003; 99283

== ENCOUNTER 2023-05-27 20:06 | Emergency (ER) | payer MEDICARE, SELFPAY ==
[2023-05-27 20:07] VITALS: BP 137/67; PULSE 86; RESP 18; TEMP 37.2; O2SAT 94; BMI 32.3
--- NOTE | 2023-05-27 20:14 | W.ED.ABDPA2 ---
HPI - Abdominal Pain General: Chief Complaint: Abdominal Pain Stated Complaint: post surgery Time Seen by Provider: 05/27/23 20:07 History of Present Illness: 77-year-old female presents to the emergency department with complaints of abdominal pain and constipation. She states that she had a hernia repair on Thursday which was 2 days ago and then had difficulty with urination and bowel movements and was seen in this emergency department yesterday. She states she is currently taking the pain medication that she was prescribed after her surgery. She states that she does feel nauseated and received antinausea medicine via EMS prior to arrival here in the emergency department today. She states yesterday when she was in the emergency department they placed a Caldwell catheter to help relieve her urinary retention and she states she felt significantly improved and was discharged home at that time. She states that she also took a suppository at home earlier today without resolution of her constipation. She states her current discomfort is a 5 out of 10 and that she feels full to her abdominal area. She denies fevers chills or night sweats. Associated Symptoms: Reports constipation and nausea Review of Systems General: Reports: 10 or more systems reviewed and unremarkable except in HPI and below GI: Reports: abdominal pain, nausea and constipation PFSH ED PFSH: Medical History Gallstone GERD (gastroesophageal reflux disease) History of breast cancer History of lung cancer History of nonmelanoma skin cancer Hypercholesteremia Hypertension Osteoarthritis Tendonitis bilateral wrists Surgical History History of bilateral tubal ligation History of colectomy History of esophagogastroduodenoscopy (EGD) 10+ yrs History of laparoscopic cholecystectomy History of lumpectomy of left breast History of lung surgery cancer removal Hx of colonoscopy 10+ Hx of right hemicolectomy laparoscopic converted to open right hemicolectomy Family History Family/Other Breast cancer Aunt/Maternal Grandmother Breast cancer Maternal Father Heart disease Denies family history of Colon cancer Ovarian cancer Diabetes Hypertension Uterine cancer Thyroid disease Stroke Social History Smoking and tobacco/nicotine status: former use of tobacco/nicotine Quit status (tobacco/nicotine): has quit using Year quit tobacco: 1999 Former quit date comment: Smoked for 35 years Alcohol intake: never Substance/Drug Use: never Lives independently: Yes Do you think of yourself as: Straight/Heterosexual Physical Exam Const: COMMON NORMALS: no acute distress, patient oriented x3 and alert HENMT: COMMON NORMALS: normocephalic and atraumatic HEAD & SCALP: normocephalic and atraumatic Eye: COMMON NORMALS: Equal, round and reactive pupils present and EOMs intact bilaterally PUPIL: Yes Equal, round and reactive pupils present Neck/C-Spine: COMMON NORMALS: full ROM and supple Resp: COMMON NORMALS: normal respiratory effort, No retractions and clear to auscultation bilaterally AUSCULTATION: clear to auscultation bilaterally Cardio: COMMON NORMALS: regular rate, regular rhythm, S1 normal heart sound present and S2 normal heart sound present RATE: regular rate RHYTHM: regular rhythm HEART SOUNDS: S1 normal heart sound present and S2 normal heart sound present GI: COMMON NORMALS: Soft to palpation and No hepatosplenomegaly present INSPECTION: No Abdominal wall edema, No abdominal distension, Yes scar, No GI erythema present and Yes other (3 well healed post-op scars with out drainage or redness. 1 midline well h) AUSCULTATION: Yes normoactive bowel sounds PALPATION: Yes Soft to palpation, No Tenderness to palpation present (GI) and Yes No hepatosplenomegaly present Back/Pelvis: COMMON NORMALS: thoracic and lumbar spine normal to inspection and thoraco-lumbar ROM normal Extremity: COMMON NORMALS: normal to inspection, full ROM and capillary refill normal Neuro: COMMON NORMALS: patient oriented x3, moves all extremities and no focal motor deficits SENSORIUM/ORIENTATION: Yes alert Psych: COMMON NORMALS: mental status grossly normal, Normal thought process present and cooperative THOUGHT PROCESS: Normal thought process present Skin: COMMON NORMALS: no rashes or lesions noted GENERAL SKIN EXAM: no rashes or lesions noted Course Vital Signs: Vital signs: Vital Signs Temperature 99 F 05/27/23 21:58 Pulse Rate 82 05/27/23 21:58 Respiratory Rate 16 05/27/23 21:58 Blood Pressure 146/61 05/27/23 21:58 Pulse Oximetry 97 05/27/23 21:58 Oxygen Delivery Me thod Nasal Cannula 05/27/23 20:25 Oxygen Flow Rate 2 05/27/23 20:25 MDM - Abdominal Pain Medical Decision Making Physical exam completed and documented I did review the patient's previous medical record and her ER visit from yesterday. It does appear she has a Caldwell catheter in place and is draining well without difficulty. She does have postoperative well-healing surgical wounds to her abdomen that have skin adhesive. Given her current concerns of no bowel movement and urinary retention I suspect this is most likely secondary to her postoperative pain medications as she states she has been taking the opioid pain medication that was prescribed to her by the surgeon. I will obtain a abdominal film to evaluate for obstipation and constipation. We will treat accordingly. Differential Diagnosis Likely constipation Medical Records I reviewed the patient's medical records. Lab Data Labs/Radiology: Radiology Impressions Abdomen X-Ray 05/27/23 20:17 IMPRESSION: 1. Negative for bowel dilation to indicate obstruction. 2. Bibasilar atelectasis versus minimal infiltrate. All radiology interpretation(s) finalized by discharge Discharge Plan Discharge Patient Disposition: Home Clinical Impression: Excessive flatus, Abdominal pain, Post-operative pain Condition: Stable Prescriptions: No Action Colon Cleanz See Rx Instructions PO .QOD Rx Instructions: Unknown dosage orally QOD; calcium carbonate 600 mg calcium (1,500 mg) tablet 600 mg PO DAILY magnesium oxide 400 mg magnesium tablet 400 mg PO DAILY sertraline 100 mg tablet 100 mg PO DAILY Qty: 60 1RF pantoprazole 40 mg tablet,delayed release (DR/EC) 40 mg PO DAILY Qty: 90 1RF meloxicam 15 mg tablet 15 mg PO DAILY Qty: 90 1RF Hold Instructions: Resume on 05/28/23. tamsulosin 0.4 mg capsule 0.4 mg PO DAILY Qty: 90 1RF trazodone 50 mg tablet 25 mg PO DAILY Qty: 60 1RF atorvastatin 20 mg tablet 20 mg PO DAILY Qty: 90 1RF anastrozole 1 mg tablet 1 mg PO DAILY Qty: 90 5RF amlodipine 10 mg tablet 10 mg PO DAILY Qty: 90 1RF lisinopril 40 mg tablet 40 mg PO DAILY Qty: 90 0RF Miralax 17 gram/dose powder 17 g PO DAILY PRN (Reason: Constipation) hydrocodone-acetaminophen 10-325 mg tablet 1 tab PO Q6H PRN (Reason: pain) Qty: 20 0RF Rx Instructions: May take half of a tab at a time Colace 100 mg capsule 100 mg PO BID Qty: 14 0RF Discharge Orders: Discharge ED (Routine); Ordered 05/27/23 Ordered By: Emmanuel Staley Referrals: Garrett Shaffer MD [Primary Care Provider] - Discharge Diet: Advance as tolerated Discharge Activity: Resume usual activity Patient Instructions: Abdominal Pain (ED), Opioid Safety, Pain Management Coding Level of Care Code ED Silverware Supervisor for Sahra Leal
--- NOTE | 2023-05-27 20:17 | XRR_ITS ---
PROCEDURE INFORMATION: Exam: XR Abdomen Exam date and time: 05/27/2023 8:37 PM Age: 77 years old Clinical indication: Abdominal pain; Additional info: Constipation/abdominal pain TECHNIQUE: Imaging protocol: Radiologic exam of the abdomen. Views: Frontal supine view of the abdomen. 1 View. COMPARISON: CT abdomen pelvis w con* [id number] 05/16/2023 6:59 PM FINDINGS: Lungs: Bibasilar atelectasis versus minimal infiltrate. Gastrointestinal tract: Normal. No bowel dilation. Bones/joints: Unremarkable. XR/XR abdomen 1V* [id number] IMPRESSION: 1. Negative for bowel dilation to indicate obstruction. 2. Bibasilar atelectasis versus minimal infiltrate.
--- NOTE | 2023-05-27 20:24 | PC.NURSE ---
RN into room to place pt on oxygen NC due to SpO2 being 87% RA. Pt states she feels as if she cannot get a deep breath. Pt denies cough but says she tries to not cough due to abdominal pain. Pt denies increased sputum production, home O2 usage.
[2023-05-27 20:25] VITALS: BP 137/67; PULSE 76; RESP 16; O2SAT 99
[2023-05-27 21:03] VITALS: BP 113/55; PULSE 78; RESP 16; O2SAT 97
[2023-05-27 21:31] VITALS: BP 146/61; PULSE 82; RESP 16; O2SAT 97
[2023-05-27 21:58] VITALS: BP 146/61; PULSE 82; RESP 16; TEMP 37.2; O2SAT 97
== END 2023-05-27 21:58 | disposition home or self-care (01) ==
PROVIDERS: Emergency Provider Internal Medicine; PCP Family Medicine
DX: R14.3 Flatulence (principal); G89.18 Other acute postprocedural pain; R10.9 Unspecified abdominal pain; Z87.891 Personal history of nicotine dependence; Z85.3 Personal history of malignant neoplasm of breast; Z85.118 Personal history of other malignant neoplasm of bronchus and lung; I10 Essential (primary) hypertension
CPT/HCPCS: 74018; 99283

== ENCOUNTER 2023-05-28 16:30 | Emergency (ER) | payer MEDICARE, MEDICAID, SELFPAY ==
[2023-05-28 16:30] VITALS: BP 115/47; PULSE 94; RESP 18; TEMP 37.2; O2SAT 86; BMI 36.3
--- NOTE | 2023-05-28 16:42 | W.ED.ABDPA2 ---
HPI - Abdominal Pain General: Chief Complaint: Abdominal Pain Stated Complaint: abd pain Time Seen by Provider: 05/28/23 16:42 History of Present Illness: 77-year-old female presents to the emergency department with complaints of abdominal pain and constipation.? She was seen in this emergency department yesterday.? Patient states that despite taking her stool softeners she states she is still not had a bowel movement. I advised the patient yesterday that there was not a significant amount of stool in her colon as to encourage her to have a bowel movement. The patient states she continues to take her pain medication post hernia surgery. Associated Symptoms: Reports bloating and constipation Review of Systems General: Reports: 10 or more systems reviewed and unremarkable except in HPI and below GI: Reports: constipation and bloating PFSH ED PFSH: Medical History Gallstone GERD (gastroesophageal reflux disease) History of breast cancer History of lung cancer History of nonmelanoma skin cancer Hypercholesteremia Hypertension Osteoarthritis Tendonitis bilateral wrists Surgical History History of bilateral tubal ligation History of colectomy History of esophagogastroduodenoscopy (EGD) 10+ yrs History of laparoscopic cholecystectomy History of lumpectomy of left breast History of lung surgery cancer removal Hx of colonoscopy 10+ Hx of right hemicolectomy laparoscopic converted to open right hemicolectomy Family History Family/Other Breast cancer Aunt/Maternal Grandmother Breast cancer Maternal Father Heart disease Denies family history of Colon cancer Ovarian cancer Diabetes Hypertension Uterine cancer Thyroid disease Stroke Social History Smoking and tobacco/nicotine status: former use of tobacco/nicotine Quit status (tobacco/nicotine): has quit using Year quit tobacco: 1999 Former quit date comment: Smoked for 35 years Alcohol intake: never Substance/Drug Use: never Lives independently: Yes Do you think of yourself as: Straight/Heterosexual Physical Exam Const: COMMON NORMALS: no acute distress, patient oriented x3 and alert HENMT: COMMON NORMALS: normocephalic, Normal nasal mucous membranes and turbinates present and moist oral mucous membranes HEAD & SCALP: normocephalic NOSE: Normal nasal mucous membranes and turbinates present Eye: COMMON NORMALS: Equal, round and reactive pupils present and EOMs intact bilaterally PUPIL: Yes Equal, round and reactive pupils present Neck/C-Spine: COMMON NORMALS: full ROM, supple and no meningeal signs Resp: COMMON NORMALS: normal respiratory effort, No retractions and clear to auscultation bilaterally AUSCULTATION: clear to auscultation bilaterally Cardio: COMMON NORMALS: regular rate, regular rhythm, S1 normal heart sound present, S2 normal heart sound present and Peripheral pulses 2+ throughout RATE: regular rate RHYTHM: regular rhythm HEART SOUNDS: S1 normal heart sound present and S2 normal heart sound present PERIPHERAL PULSES: Peripheral pulses 2+ throughout GI: COMMON NORMALS: Normal to inspection, nondistended, normoactive bowel sounds present, Soft to palpation and non-tender PALPATION: Yes Soft to palpation : COMMON NORMALS: Yes no CVA tenderness BLADDER/KIDNEY EXAM: Yes no CVA tenderness Back/Pelvis: COMMON NORMALS: no CVA tenderness and thoracic and lumbar spine normal to inspection Extremity: COMMON NORMALS: normal to inspection, full ROM and capillary refill normal Neuro: COMMON NORMALS: patient oriented x3, moves all extremities, no focal motor deficits and no sensory deficits noted SENSORIUM/ORIENTATION: Yes alert MENINGEAL SIGNS: Yes no meningeal signs Psych: COMMON NORMALS: mental status grossly normal, Normal thought process present and cooperative THOUGHT PROCESS: Normal thought process present Skin: COMMON NORMALS: no rashes or lesions noted GENERAL SKIN EXAM: no rashes or lesions noted Course Vital Signs: Vital signs: Vital Signs Temperature 98.9 F 05/28/23 16:30 Pulse Rate 94 05/28/23 16:30 Respiratory Rate 18 05/28/23 16:30 Blood Pressure 115/47 05/28/23 16:30 Pulse Oximetry 86 L 05/28/23 16:30 Oxygen Delivery Me thod Room Air 05/28/23 16:30 MDM - Abdominal Pain Medical Decision Making Physical exam completed, I reviewed the patient's previous medical record and advised her that we would obtain a plain film radiograph. There does not appear to be any significant amount of stool or bowel obstruction. I did advise her that again her small bowel is gas-filled as well as the colon which is causing her feelings of being bloated. Medical Records I reviewed the patient's medical records. Lab Data Labs/Radiology: Radiology Impressions Abdomen X-Ray 05/28/23 16:56 IMPRESSION: 1. Gas-filled small bowel and colon noted. No findings of bowel obstruction. 2. There is no interval change from the prior examination. All radiology interpretation(s) finalized by discharge Discharge Plan Discharge Patient Disposition: Home Clinical Impression: Excessive flatus, Nausea Condition: Stable Prescriptions: New Gas Relief (simethicone) 125 mg tablet,chewable 125 mg PO BID PRN (Reason: abdominal distention) Qty: 14 0RF No Action Colon Cleanz See Rx Instructions PO .QOD Rx Instructions: Unknown dosage orally QOD; calcium carbonate 600 mg calcium (1,500 mg) tablet 600 mg PO DAILY magnesium oxide 400 mg magnesium tablet 400 mg PO DAILY sertraline 100 mg tablet 100 mg PO DAILY Qty: 60 1RF pantoprazole 40 mg tablet,delayed release (DR/EC) 40 mg PO DAILY Qty: 90 1RF meloxicam 15 mg tablet 15 mg PO DAILY Qty: 90 1RF Hold Instructions: Resume on 05/28/23. tamsulosin 0.4 mg capsule 0.4 mg PO DAILY Qty: 90 1RF trazodone 50 mg tablet 25 mg PO DAILY Qty: 60 1RF atorvastatin 20 mg tablet 20 mg PO DAILY Qty: 90 1RF anastrozole 1 mg tablet 1 mg PO DAILY Qty: 90 5RF amlodipine 10 mg tablet 10 mg PO DAILY Qty: 90 1RF lisinopril 40 mg tablet 40 mg PO DAILY Qty: 90 0RF magnesium citrate [OneLAX Magnesium Citrate] Solution 75 ml PO BID PRN (Reason: constipation) Qty: 296 0RF bisacodyl [Dulcolax (bisacodyl)] 5 mg tablet,delayed release (DR/EC) 5 mg PO DAILY PRN (Reason: constipation) Qty: 30 0RF Miralax 17 gram/dose powder 34 g PO BID PRN (Reason: Constipation) Qty: 510 1RF hydrocodone-acetaminophen 10-325 mg tablet 1 tab PO Q6H PRN (Reason: pain) Qty: 20 0RF Rx Instructions: May take half of a tab at a time Colace 100 mg capsule 100 mg PO BID Qty: 14 0RF Discharge Orders: Discharge ED (Routine); Ordered 05/28/23 Ordered By: Emmanuel Staley Referrals: Garrett Shaffer MD [Primary Care Provider] - Discharge Diet: Advance as tolerated Discharge Activity: Resume usual activity Patient Instructions: Opioid Safety, Pain Management Coding Level of Care Code ED Correctional Security Officer for Sahra Leal
--- NOTE | 2023-05-28 16:56 | XRR_ITS ---
PROCEDURE INFORMATION: Exam: XR Abdomen Exam date and time: 05/28/2023 5:05 PM Age: 77 years old Clinical indication: Abdominal pain; Prior surgery; Surgery date: Post-operative (0-2 days); Surgery type: Colon surgery for possibe cancer; Additional info: Constipation TECHNIQUE: Imaging protocol: Radiologic exam of the abdomen. Views: Frontal supine view of the abdomen. 1 View. COMPARISON: CR (ABDOMEN, ) 05/27/2023 8:37 PM FINDINGS: Gastrointestinal tract: Gas-filled small bowel and colon noted. No findings of bowel obstruction. Bones/joints: Scoliosis and degenerative change of the lumbar spine noted. XR/XR abdomen 1V* [id number] IMPRESSION: 1. Gas-filled small bowel and colon noted. No findings of bowel obstruction. 2. There is no interval change from the prior examination.
== END 2023-05-28 18:14 | disposition home or self-care (01) ==
PROVIDERS: Emergency Provider Internal Medicine; PCP Family Medicine
DX: R14.3 Flatulence (principal); R11.0 Nausea; Z87.891 Personal history of nicotine dependence; Z85.3 Personal history of malignant neoplasm of breast; Z85.118 Personal history of other malignant neoplasm of bronchus and lung; I10 Essential (primary) hypertension
CPT/HCPCS: 74018; 99283